=== PATIENT | female | born 1945 | race Caucasian/White ===

== ENCOUNTER → 2017-06-05 | Outpatient (CLI) | payer MEDICARE, SELFPAY | PROVIDERS: Family Provider Internal Medicine Adolescent Medicine; Visit Provider Nurse Practitioner Family | DX: M54.5 Low back pain (principal); M62.830 Muscle spasm of back | CPT/HCPCS: 72072; 72110 ==

== ENCOUNTER → 2017-06-18 09:00 | Outpatient (CLI) | payer MEDICARE, SELFPAY ==
[2017-06-18 09:34] LABS: Basophils % 0.6 % (0.1-2.0); Eosinophils # 0.4 K/mm3 (0.0-0.4); Eosinophils % 7.3 % (0.1-12.0); Lymphocytes # 1.9 K/mm3 (0.7-4.5); Lymphocytes % 40.5 K/mm3 (10-50); Mean Corpuscular HGB Conc 32.4 g/dL (31.8-35.4); Mean Corpuscular Volume 92.5 fl (81-99); Mean Platelet Volume 6.9 fl (7.4-10.4); Monocytes # 0.3 K/mm3 (0.1-1.0); Monocytes % 6.5 % (1.7-9.3); Neutrophils # 2.2 K/mm3 (1.8-7.8); Platelet Count 239 K/mm3 (142-424); Red Blood Count 3.35 M/mm3 (4.20-5.40); Red Cell Distribution Width 13.5 % (11.5-17.5); White Blood Count 4.8 K/mm3 (4.8-10.8)
[2017-06-18 10:08] LABS: Hemoglobin A1C 6.9 % (0.0-7.0)
[2017-06-18 10:52] LABS: Alanine Aminotransferase 28 U/L (12-78); Albumin Level 3.9 gm/dL (3.4-5.0); Albumin/Globulin Ratio 1.2 (1.1-1.8); Alkaline Phosphatase 72 U/L (46-116); Anion Gap 13.1 mEq/L (5-15); Aspartate Amino Transferase 20 U/L (15-37); Bilirubin,Total 0.4 mg/dL (0.2-1.0); Blood Urea Nitrogen 23 mg/dL (7-18); Calcium 8.8 mg/dL (8.5-10.1); Carbon Dioxide 28 mmol/L (21.0-32.0); Chloride 105 mmol/L (98-107); Chol/HDL Ratio 2.8 (1-3.5); Cholesterol 166 mg/dL (140-200); Creatinine,Serum 1.39 mg/dL (0.55-1.02); Estimated Glomerular Filt Rate 37 ml/min (>60); GFR (African American) 45 ML/MIN (>60); Globulin 3.2 gm/dl (1.3-3.2); Glucose 113 mg/dL (74-106); HDL Cholesterol 60 mg/dL (29-89); LDL Cholesterol 92 mg/dL (0-130); Potassium 5.1 mmoL/L (3.5-5.1); Sodium 141 mmol/L (136-145); Total Protein,Serum 7.1 gm/dL (6.4-8.2); Triglycerides 72 mg/dL (30-200); VLDL Cholesterol 14 mg/dL (0-40)
[2017-06-20 17:03] LABS: Microalbumin, Urine 14.5 ug/mL (Not Estab.)
== END ==
PROVIDERS: PCP Nurse Practitioner Family; Visit Provider Nurse Practitioner Family
DX: D64.9 Anemia, unspecified (principal); E11.9 Type 2 diabetes mellitus without complications; E78.2 Mixed hyperlipidemia; I10 Essential (primary) hypertension
CPT/HCPCS: 36415; 80053; 80061; 82043; 83036; 85025

== ENCOUNTER → 2018-03-17 08:02 | Outpatient (CLI) | payer MEDICARE, SELFPAY ==
[2018-03-17 08:51] LABS: Basophils # 0.1 K/mm3 (0-0.2); Basophils % 1.3 % (0.1-2.0); Eosinophils # 0.8 K/mm3 (0.0-0.4); Eosinophils % 17.5 % (0.1-12.0); Hematocrit 30.1 % (37.0-47.0); Hemoglobin 9.3 g/dL (12.2-16.2); Lymphocytes # 1.4 K/mm3 (0.7-4.5); Lymphocytes % 30.1 K/mm3 (10-50); Mean Corpuscular HGB Conc 30.9 g/dL (31.8-35.4); Mean Corpuscular Hemoglobin 29.5 pg (27.0-31.2); Mean Corpuscular Volume 95.4 fl (81-99); Mean Platelet Volume 6.7 fl (7.4-10.4); Monocytes # 0.3 K/mm3 (0.1-1.0); Monocytes % 7.2 % (1.7-9.3); Neutrophils # 2.1 K/mm3 (1.8-7.8); Neutrophils % 43.9 % (37.0-80.0); Platelet Count 236 K/mm3 (142-424); Red Blood Count 3.16 M/mm3 (4.20-5.40); Red Cell Distribution Width 13.3 % (11.5-17.5); White Blood Count 4.7 K/mm3 (4.8-10.8)
[2018-03-17 09:28] LABS: Alanine Aminotransferase 23 U/L (12-78); Albumin Level 3.9 gm/dL (3.4-5.0); Albumin/Globulin Ratio 1.2 (1.1-1.8); Alkaline Phosphatase 67 U/L (46-116); Anion Gap 15.3 mEq/L (5-15); Aspartate Amino Transferase 18 U/L (15-37); Bilirubin,Total 0.3 mg/dL (0.2-1.0); Blood Urea Nitrogen 25 mg/dL (7-18); Calcium 8.8 mg/dL (8.5-10.1); Carbon Dioxide 26 mmol/L (21.0-32.0); Chloride 105 mmol/L (98-107); Chol/HDL Ratio 3.2 (1-3.5); Cholesterol 164 mg/dL (140-200); Creatinine,Serum 1.26 mg/dL (0.55-1.02); Estimated Glomerular Filt Rate 42 ml/min (>60); GFR (African American) 50 ML/MIN (>60); Globulin 3.2 gm/dl (1.3-3.2); Glucose 134 mg/dL (74-106); HDL Cholesterol 52 mg/dL (29-89); LDL Cholesterol 93 mg/dL (0-130); Potassium 5.3 mmoL/L (3.5-5.1); Sodium 141 mmol/L (136-145); Total Protein,Serum 7.1 gm/dL (6.4-8.2); Triglycerides 97 mg/dL (30-200); VLDL Cholesterol 19 mg/dL (0-40)
[2018-03-17 10:34] LABS: Hemoglobin A1C 6.4 % (0.0-7.0)
[2018-03-18 11:26] LABS: Creatinine, Urine 36.2 mg/dL (Not Estab.); Microalbumin, Urine 7.2 ug/mL (Not Estab.)
== END ==
PROVIDERS: PCP Internal Medicine Adolescent Medicine; Visit Provider Nurse Practitioner Family
DX: E78.2 Mixed hyperlipidemia (principal); E11.22 Type 2 diabetes mellitus with diabetic chronic kidney disease; D64.9 Anemia, unspecified; I10 Essential (primary) hypertension
CPT/HCPCS: 36415; 80053; 80061; 82043; 82570; 83036; 85025

== ENCOUNTER → 2018-03-19 10:43 | Outpatient (CLI) | payer MEDICARE, SELFPAY ==
[2018-03-19 14:13] LABS: Ferritin 23 ng/mL (8-388)
[2018-03-20 08:25] LABS: Iron 49 ug/dL (27-139); UIBC 278 ug/dL (118-369)
[2018-03-20 10:05] LABS: Vitamin B12 828 pg/mL (232-1245)
[2018-03-20 10:06] LABS: Folate >20.0 ng/mL (>3.0); Iron Saturation 15 % (15-55)
== END ==
PROVIDERS: PCP Internal Medicine Adolescent Medicine; Visit Provider Nurse Practitioner Family
DX: D50.9 Iron deficiency anemia, unspecified (principal)
CPT/HCPCS: 36415; 82607; 82728; 82746; 83540; 83550

== ENCOUNTER → 2018-04-09 11:33 | Outpatient (CLI) | payer MEDICARE, SELFPAY ==
[2018-04-09 14:32] LABS: Lactate Dehydrogenase 208 U/L (82-234); Thyroid Stimulating Hormone 1.78 uIU/ml (0.358-3.740)
[2018-04-10 14:15] LABS: Haptoglobin 156 mg/dL (34-200)
[2018-04-10 15:27] LABS: Albumin 3.8 g/dL (2.9-4.4); Alpha-1-Globulin 0.2 g/dL (0.0-0.4); Gamma Globulin 1.1 g/dL (0.4-1.8); Protein, Total 7.1 g/dL (6.0-8.5)
[2018-04-10 16:21] LABS: Free Kappa Lt Chains 38.2 mg/L (3.3-19.4); Free Lambda Lt Chains 17.7 mg/L (5.7-26.3); Immunoglobulin A, Qn 185 mg/dL (64-422); Immunoglobulin G, Qn 1020 mg/dL (700-1600); Immunoglobulin M, Qn 67 mg/dL (26-217)
[2018-04-15 12:36] LABS: Strongyloides IgG Antibody Negative (Negative)
== END ==
PROVIDERS: PCP Nurse Practitioner Family; Visit Provider Internal Medicine Medical Oncology
DX: D72.1 Eosinophilia (principal); Z79.899 Other long term (current) drug therapy
CPT/HCPCS: 36415; 82784; 83010; 83615; 83883; 84155; 84165; 84443; 86334; 86682

== ENCOUNTER 2018-04-27 10:00 | Outpatient (RCR) | payer MEDICARE, SELFPAY ==
--- NOTE | 2018-03-16 14:37 | HMH.PTOPWND ---
Rehab Outpt Wound Evaluation Rehab OP Wound Evaluation Start: 03/16/18 14:27 Freq: Status: Active Protocol: Document 03/16/18 14:27 [email or web address] (Rec: 03/16/18 14:37 [email or web address] [id number]) Electronically Signed By Oh Craig, PT 03/16/18 14:27 Subjective/History History History This is the initial wound evaluation for Shayy Craig. Pt is a 72 y/o female referred to OP PT wound clinic for slow healing wound. Pt reports she was bit by cat on R anterior craig 02/01. Pt rpeorts she went to [facility], then saw PCP. Pt reports 1 round of antibiotics. Wound Eval Wound Right Anterior Distal Craig Wound Type cat bite Is This a Chronic Wound Yes Wound Length (cm) 0.5 Wound Width (cm) 0.3 Wound Depth (cm) 0.1 Wound Bed Appearance Beefy Red Yellow Percentage Granulated (%) 60 Percentage of Slough (%) 40 Percentage of Eschar (Yellow) (%) 40 Wound Margins Description Well Defined Edema Type Pitting Edema Degree 1+ Query Text:1+ Trace, Barely Detectable, Rebound 15-30 seconds 2+ Moderate, Slight Indentation, Rebound 10-20 seconds 3+ Deep, Deeper Indentation, Rebound > 30 seconds 4+ Very Deep, Rebound > 60 seconds Edema Appearance Shiny Surrounding Tissue Temperature Warm Drainage Amount None Drainage Odor No Odor Dressing Status Open to Air Wound Topical Solution/Irrigant Antibiotic Irrigant Primary Dressing Silver Dressing Comment teg AG mesh Wound Secondary Dressing Type Silver Dressing Wound Debridement Amount of Tissue Minimal Removed Wound Debridement Result Healthy Tissue Revealed Dressing Change Date 03/16/18 Wound Problems/Impairments Impairments Problems/Impairmments Wound Care Needs Impaired Self Care/Self Management Prognosis Rehab Potential Good Clinical Impression Consistent with Diagnosis Yes Short Term Goals Number of Weeks 2 Decrease Wound Area Yes: 50% Increase Red Granulation Tissue % Yes: 100 Patient to be Ind w/ Home Wound Care/ Yes 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
== END 2018-04-27 10:05 | disposition home or self-care (01) ==
LOC: PT 10:00
PROVIDERS: Visit Provider Nurse Practitioner Family
DX: L03.115 Cellulitis of right lower limb (principal); S91.051D Open bite, right ankle, subsequent encounter
CPT/HCPCS: 97161

== ENCOUNTER → 2018-07-22 10:52 | Outpatient (CLI) | payer MEDICARE, SELFPAY ==
[2018-07-22 11:05] LABS: Basophils # 0.1 K/mm3 (0-0.2); Basophils % 0.6 % (0.1-2.0); Eosinophils # 1.2 K/mm3 (0.0-0.4); Eosinophils % 16.8 % (0.1-12.0); Hematocrit 31.2 % (37.0-47.0); Hemoglobin 10.1 g/dL (12.2-16.2); Mean Corpuscular HGB Conc 32.2 g/dL (31.8-35.4); Mean Corpuscular Volume 93.2 fl (81-99); Mean Platelet Volume 6.4 fl (7.4-10.4); Monocytes # 0.4 K/mm3 (0.1-1.0); Monocytes % 5.6 % (1.7-9.3); Neutrophils # 3.7 K/mm3 (1.8-7.8); Platelet Count 250 K/mm3 (142-424); Red Blood Count 3.35 M/mm3 (4.20-5.40); Red Cell Distribution Width 13.8 % (11.5-17.5); White Blood Count 7.4 K/mm3 (4.8-10.8)
== END ==
PROVIDERS: Visit Provider Internal Medicine Medical Oncology
DX: D64.9 Anemia, unspecified (principal)
CPT/HCPCS: 36415; 85025

== ENCOUNTER → 2018-08-18 12:06 | Outpatient (CLI) | payer MEDICARE, SELFPAY ==
[2018-08-18 12:55] LABS: Basophils # 0.1 K/mm3 (0-0.2); Basophils % 0.8 % (0.1-2.0); Eosinophils # 0.7 K/mm3 (0.0-0.4); Eosinophils % 10.8 % (0.1-12.0); Hemoglobin 9.8 g/dL (12.2-16.2); Mean Corpuscular HGB Conc 32.8 g/dL (31.8-35.4); Mean Corpuscular Hemoglobin 30.4 pg (27.0-31.2); Mean Corpuscular Volume 92.6 fl (81-99); Mean Platelet Volume 6.5 fl (7.4-10.4); Monocytes # 0.4 K/mm3 (0.1-1.0); Monocytes % 5.4 % (1.7-9.3); Neutrophils # 3.7 K/mm3 (1.8-7.8); Platelet Count 222 K/mm3 (142-424); Red Blood Count 3.24 M/mm3 (4.20-5.40); Red Cell Distribution Width 13.4 % (11.5-17.5); White Blood Count 6.8 K/mm3 (4.8-10.8)
[2018-08-18 13:41] LABS: Hemoglobin A1C 7.2 % (0.0-7.0)
[2018-08-18 15:16] LABS: Alanine Aminotransferase 18 U/L (12-78); Albumin Level 3.9 gm/dL (3.4-5.0); Albumin/Globulin Ratio 1.1 (1.1-1.8); Alkaline Phosphatase 76 U/L (46-116); Anion Gap 17.3 mEq/L (5-15); Aspartate Amino Transferase 19 U/L (15-37); Bilirubin,Total 0.3 mg/dL (0.2-1.0); Blood Urea Nitrogen 36 mg/dL (7-18); Calcium 8.8 mg/dL (8.5-10.1); Carbon Dioxide 25 mmol/L (21.0-32.0); Chloride 100 mmol/L (98-107); Chol/HDL Ratio 5.1 (1-3.5); Cholesterol 199 mg/dL (140-200); Creatinine,Serum 1.44 mg/dL (0.55-1.02); Estimated Glomerular Filt Rate 35 ml/min (>60); GFR (African American) 43 ML/MIN (>60); Globulin 3.5 gm/dl (1.3-3.2); Glucose 196 mg/dL (74-106); HDL Cholesterol 39 mg/dL (29-89); LDL Cholesterol 126 mg/dL (0-130); Potassium 5.3 mmoL/L (3.5-5.1); Sodium 137 mmol/L (136-145); Thyroid Stimulating Hormone 2.37 uIU/ml (0.358-3.740); Total Protein,Serum 7.4 gm/dL (6.4-8.2); Triglycerides 168 mg/dL (30-200); VLDL Cholesterol 34 mg/dL (0-40)
== END ==
PROVIDERS: Visit Provider Internal Medicine Adolescent Medicine
DX: E78.2 Mixed hyperlipidemia (principal); E11.9 Type 2 diabetes mellitus without complications; Z79.84 Long term (current) use of oral hypoglycemic drugs
CPT/HCPCS: 36415; 80053; 80061; 83036; 84443; 85025

== ENCOUNTER → 2019-01-26 11:10 | Outpatient (CLI) | payer MEDICARE, SELFPAY ==
--- NOTE | 2019-01-26 11:14 | XR_ITS ---
PROCEDURE: XR CHEST 2V CLINICAL HISTORY: COUGH COMPARISON: CXR CHEST(2 VIEWS-NOT PORTABLE) from 12/08/2013 CXR CHEST(2 VIEWS-NOT PORTABLE) from 07/30/2016 CXR CHEST(2 VIEWS-NOT PORTABLE) from 11/15/2016 FINDINGS: Prior CABG and mitral valve replacement. Mild cardiomegaly without failure. AICD device is present from left subclavian approachthe lungs are clear without infiltrates, suspicious nodules, or pleural effusions.Calcified granuloma right upper lobe IMPRESSION: No acute findings. Dictated by: Tobi Blankenship MD 01/26/2019 12:40 Signed by: <Electronically signed by Tobi Blankenship MD in [place]> 01/26/2019 12:40
== END ==
PROVIDERS: PCP Internal Medicine Adolescent Medicine; Visit Provider Internal Medicine Adolescent Medicine
DX: R05 Cough (principal)
CPT/HCPCS: 71046

== ENCOUNTER → 2019-02-16 08:25 | Outpatient (CLI) | payer MEDICARE, SELFPAY ==
[2019-02-16 08:42] LABS: Basophils # 0.1 K/mm3 (0-0.2); Basophils % 0.9 % (0.1-2.0); Eosinophils # 0.3 K/mm3 (0.0-0.4); Eosinophils % 5.9 % (0.1-12.0); Hematocrit 30.4 % (37.0-47.0); Hemoglobin 9.6 g/dL (12.2-16.2); Lymphocytes # 1.9 K/mm3 (0.7-4.5); Lymphocytes % 33.4 % (10-50); Mean Corpuscular HGB Conc 31.6 g/dL (31.8-35.4); Mean Corpuscular Hemoglobin 30.4 pg (27.0-31.2); Mean Platelet Volume 6.4 fl (7.4-10.4); Monocytes # 0.5 K/mm3 (0.1-1.0); Monocytes % 8.4 % (1.7-9.3); Neutrophils % 51.4 % (37.0-80.0); Platelet Count 298 K/mm3 (142-424); Red Blood Count 3.17 M/mm3 (4.20-5.40); Red Cell Distribution Width 14.6 % (11.5-17.5); White Blood Count 5.7 K/mm3 (4.8-10.8)
[2019-02-16 09:07] LABS: Hemoglobin A1C 7.3 % (0.0-7.0)
[2019-02-16 10:37] LABS: Alanine Aminotransferase 32 U/L (12-78); Albumin Level 3.6 gm/dL (3.4-5.0); Albumin/Globulin Ratio 0.9 (1.1-1.8); Alkaline Phosphatase 55 U/L (46-116); Anion Gap 12.5 mEq/L (5-15); Aspartate Amino Transferase 21 U/L (15-37); Bilirubin,Total 0.6 mg/dL (0.2-1.0); Blood Urea Nitrogen 24 mg/dL (7-18); Calcium 9.1 mg/dL (8.5-10.1); Carbon Dioxide 28 mmol/L (21.0-32.0); Chloride 102 mmol/L (98-107); Chol/HDL Ratio 2.8 (1-3.5); Cholesterol 139 mg/dL (140-200); Estimated Glomerular Filt Rate 48 ml/min (>60); GFR (African American) 59 ML/MIN (>60); Glucose 122 mg/dL (74-106); HDL Cholesterol 49 mg/dL (29-89); LDL Cholesterol 76 mg/dL (0-130); Potassium 5.5 mmoL/L (3.5-5.1); Sodium 137 mmol/L (136-145); Total Protein,Serum 7.6 gm/dL (6.4-8.2); Triglycerides 69 mg/dL (30-200); VLDL Cholesterol 14 mg/dL (0-40)
== END ==
PROVIDERS: Visit Provider Internal Medicine Adolescent Medicine
DX: E78.2 Mixed hyperlipidemia (principal); E11.9 Type 2 diabetes mellitus without complications; Z79.84 Long term (current) use of oral hypoglycemic drugs; I10 Essential (primary) hypertension
CPT/HCPCS: 36415; 80053; 80061; 83036; 85025

== ENCOUNTER → 2019-06-14 08:52 | Outpatient (CLI) | payer MEDICARE, SELFPAY ==
[2019-06-14 10:02] LABS: Basophils # 0.1 K/mm3 (0-0.2); Basophils % 0.9 % (0.1-2.0); Eosinophils # 0.8 K/mm3 (0.0-0.4); Eosinophils % 12.2 % (0.1-12.0); Hemoglobin 10.6 g/dL (12.2-16.2); Lymphocytes # 1.9 K/mm3 (0.7-4.5); Lymphocytes % 31.2 % (10-50); Mean Corpuscular HGB Conc 32.1 g/dL (31.8-35.4); Mean Corpuscular Hemoglobin 31.3 pg (27.0-31.2); Mean Corpuscular Volume 97.5 fl (81-99); Mean Platelet Volume 7.4 fl (7.4-10.4); Monocytes # 0.3 K/mm3 (0.1-1.0); Monocytes % 5.1 % (1.7-9.3); Neutrophils # 3.1 K/mm3 (1.8-7.8); Neutrophils % 50.6 % (37.0-80.0); Platelet Count 313 K/mm3 (142-424); Red Blood Count 3.39 M/mm3 (4.20-5.40); Red Cell Distribution Width 13.3 % (11.5-17.5); White Blood Count 6.1 K/mm3 (4.8-10.8)
[2019-06-14 10:12] LABS: Hemoglobin A1C 7.2 % (0.0-7.0)
[2019-06-14 11:12] LABS: Alanine Aminotransferase 13 U/L (12-78); Albumin Level 3.6 gm/dL (3.4-5.0); Alkaline Phosphatase 68 U/L (46-116); Anion Gap 16.5 mEq/L (5-15); Aspartate Amino Transferase 12 U/L (15-37); Bilirubin,Total 0.4 mg/dL (0.2-1.0); Blood Urea Nitrogen 33 mg/dL (7-18); Calcium 8.6 mg/dL (8.5-10.1); Carbon Dioxide 26 mmol/L (21.0-32.0); Chloride 103 mmol/L (98-107); Creatinine,Serum 1.39 mg/dL (0.55-1.02); Estimated Glomerular Filt Rate 37 ml/min (>60); GFR (African American) 45 ML/MIN (>60); Globulin 3.6 gm/dl (1.3-3.2); Glucose 163 mg/dL (74-106); Potassium 5.5 mmoL/L (3.5-5.1); Sodium 140 mmol/L (136-145); Total Protein,Serum 7.2 gm/dL (6.4-8.2)
== END ==
PROVIDERS: Visit Provider Internal Medicine Adolescent Medicine
DX: E11.9 Type 2 diabetes mellitus without complications (principal); Z79.84 Long term (current) use of oral hypoglycemic drugs
CPT/HCPCS: 36415; 80053; 83036; 85025

== ENCOUNTER → 2019-12-28 09:06 | Outpatient (CLI) | payer MEDICARE, SELFPAY ==
[2019-12-28 09:47] LABS: Basophils # 0.1 K/mm3 (0-0.2); Basophils % 0.9 % (0.1-2.0); Eosinophils # 0.8 K/mm3 (0.0-0.4); Eosinophils % 11.5 % (0.1-12.0); Hematocrit 33.3 % (37.0-47.0); Hemoglobin 10.5 g/dL (12.2-16.2); Lymphocytes # 2.8 K/mm3 (0.7-4.5); Lymphocytes % 42.7 % (10-50); Mean Corpuscular HGB Conc 31.5 g/dL (31.8-35.4); Mean Corpuscular Hemoglobin 31.1 pg (27.0-31.2); Mean Corpuscular Volume 98.9 fl (81-99); Mean Platelet Volume 6.6 fl (7.4-10.4); Monocytes # 0.4 K/mm3 (0.1-1.0); Monocytes % 5.5 % (1.7-9.3); Neutrophils # 2.6 K/mm3 (1.8-7.8); Neutrophils % 39.5 % (37.0-80.0); Platelet Count 239 K/mm3 (142-424); Red Blood Count 3.37 M/mm3 (4.20-5.40); White Blood Count 6.5 K/mm3 (4.8-10.8)
[2019-12-28 10:29] LABS: Alanine Aminotransferase 12 U/L (12-78); Albumin Level 4.3 g/dl (3.5-5.0); Albumin/Globulin Ratio 1.4 (1.1-1.8); Alkaline Phosphatase 67 U/L (38-126); Anion Gap 14.7 mEq/L (5-15); Aspartate Amino Transferase 22 U/L (14-36); Bilirubin,Total 0.4 mg/dl (0.2-1.3); Blood Urea Nitrogen 27 mg/dl (7-17); Calcium 9.4 mg/dl (8.4-10.2); Carbon Dioxide 26 mmol/L (22.0-30.0); Chloride 106 mmol/L (98-107); Chol/HDL Ratio 4.2 (1-3.5); Cholesterol 196 mg/dl (140-200); Estimated Glomerular Filt Rate 40 ml/min (>60); GFR (African American) 48 ML/MIN (>60); Globulin 3.1 g/dL (1.3-3.2); Glucose 134 mg/dl (74-100); HDL Cholesterol 47 mg/dl (40-60); Potassium 5.7 mmoL/L (3.5-5.1); Sodium 141 mmol/L (136-145); Total Protein,Serum 7.4 g/dl (6.3-8.2); Triglycerides 238 mg/dl (30-150); VLDL Cholesterol 48 mg/dL (0-40)
[2019-12-28 10:40] LABS: Direct LDL Cholesterol 110.96 mg/dL (100-129)
[2019-12-28 11:25] LABS: Hemoglobin A1C 6.7 % (4.0-6.0)
== END ==
PROVIDERS: Visit Provider Internal Medicine Adolescent Medicine
DX: E78.2 Mixed hyperlipidemia (principal); I10 Essential (primary) hypertension; E11.9 Type 2 diabetes mellitus without complications; Z79.84 Long term (current) use of oral hypoglycemic drugs
CPT/HCPCS: 36415; 80053; 80061; 83036; 85025

== ENCOUNTER 2020-01-29 21:58 | Observation (INO) | payer MEDICARE, SELFPAY ==
[2020-01-29 22:16] VITALS: BP 199/79; PULSE 104; RESP 17; TEMP 36.6; O2SAT 98; BMI 30.9
--- NOTE | 2020-01-29 22:19 | CT_ITS ---
PROCEDURE: CT HEAD/BRAIN WO CON CLINICAL INDICATION: difficulty speaking Speech disturbance stroke protocol COMPARISON: No exams were available for comparison TECHNIQUE: Axial images obtained. All CT scans at the facility use one or more dose reduction, viz: automated exposure control, ma/kV adjustment per patient size (including targeted exams where dose is matched to indication, i.e. head), or iterative reconstruction technique. FINDINGS: No midline shift, mass effect, intracranial hemorrhage, hydrocephalus, or extra-axial fluid collection is evident. There is generalized atrophy with hypoattenuation of the periventricular white matter consistent with microangiopathic changes.. There are encephalomalacia changes occipital lobe. The calvarium has an unremarkable appearance. No mastoid effusion. No sinus air-fluid level. IMPRESSION: No acute intracranial finding Dictated by: Tobi Blankenship MD 01/30/2020 07:14 Tobi Blankenship MD in [facility] 01/30/2020 07:14
[2020-01-29 22:21] LABS: POC Glucose,Bedside 59 (70-110)
--- NOTE | 2020-01-29 22:34 | HMH.EDNEU ---
ED Disposition Clinical Impression: TIA (transient ischemic attack), Hypertensive urgency, Renal insufficiency Diabetes mellitus Qualifiers: Diabetes mellitus type: type 2 Diabetes mellitus joint terminal attack controller insulin use: unspecified joint terminal attack controller insulin use status Diabetes mellitus complication status: with other specified complication Qualified Code(s): E11.69 - Type 2 diabetes mellitus with other specified complication UTI (urinary tract infection) Qualifiers: Urinary tract infection type: site unspecified Hematuria presence: without hematuria Qualified Code(s): N39.0 - Urinary tract infection, site not specified Disposition: Admitted As Inpatient Condition on Discharge: Good Instructions: DI for Altered Mental Status Referrals: James Fitzpatrick MD [Primary Care Provider] - - Critical Care Critical Care Time: No Attestation: On 01/29/20, the high probability of a clinically significant, sudden or life threatening deterioration of the following system(s) required my full and direct attention, intervention and personal management. The time I documented below is in addition to time spent performing reported procedures but includes the following listed in this critical care notation. Medical Decision Making - Medical Records Medical records reviewed: Yes: I reviewed the patient's medical records. - Dariel Inquiry Pt receiving controlled substance: No Vital Signs: 01/29/20 22:16 01/29/20 23:17 Temperature 97.8 F Temperature Source Oral Pulse Rate [Right Brachial] 104 H 96 H Respiratory Rate 17 17 Blood Pressure [Right Arm] 199/79 H 202/98 H Blood Pressure Mean [Right Arm] 119 132 Blood Pressure Source [Right Arm] Automatic Cuff Automatic Cuff Blood Pressure Position [Right Arm] Sitting Sitting 02 Sat by Pulse Oximetry 98 97 Oxygen Delivery Method Room Air Room Air - Lab Data Lab results reviewed: Yes: I reviewed the patient's lab results. Lab Results 01/29/20 22:10: WBC 7.8, RBC 3.70 L, Hgb 11.7 L, Hct 34.7 L, MCV 93.7, MCH 31.5 H, MCHC 33.7, RDW 13.4, Plt Count 305, MPV 7.2 L, Neut % (Auto) 51.0, Lymph % (Auto) 37.6, [place] % (Auto) 6.8, Eos % (Auto) 4.2, Baso % (Auto) 0.5, Neut # (Auto) 4.0, Lymph # (Auto) 2.9, [place] # (Auto) 0.5, Eos # (Auto) 0.3, Baso # (Auto) 0.0 01/29/20 22:10: Sodium 132 L, Potassium 4.8, Chloride 94 L, Carbon Dioxide 27, Anion Gap 15.8 H, BUN 29 H, Creatinine 1.50 H, Estimated Creat Clear 41, Estimated GFR 34 L, Est GFR ( Amer) 41 L, Glucose 53 L, Calcium 9.6, Troponin I < 0.01 01/29/20 22:12: POC Glucose 59 L 01/29/20 23:07: Urine Color Yellow, Urine Appearance Clear, Urine pH 6.0, Ur Specific [place] 1.010, Urine Protein Negative, Urine Glucose (UA) Negative, Urine Ketones Negative, Urine Blood Negative, Urine Nitrate Negative, Urine Bilirubin Negative, Urine Urobilinogen 0.2, Ur Leukocyte Esterase 2+ A, Urine WBC 3-5, Ur Squamous Epith Cells Occasional, Urine Bacteria Trace Result diagrams: 01/29/20 22:10 01/29/20 22:10 Orders (Tests/Meds): ORDERS Category Date Time Status CT head/brain wo con Stat Cat Scan 01/29/20 22:19 Taken Troponin I Q3H Lab 01/30/20 01:45 Ordered Troponin I Q3H Lab 01/30/20 04:45 Ordered Urine Culture Stat Micro 01/29/20 23:07 Received - CT Data CT Scan: Head Time Received: 00:[address] Reviewed: Yes: I have viewed the radiologist's interpretation Preliminary Findings: Abnormal (see report ) - ECG Data Tracing #1 Normal Sinus Rhythm: Yes Ischemic changes: non-specific ST-T wave changes - Physician Consults Physician Consulted: tyree garcia Reason -: Pt condition Neuro HPI - General Chief Complaint: Altered Mental Status Stated Complaint: difficulty with speech Time Seen by Provider: 01/29/20 22:20 Mode of Arrival: Wheelchair Source of Information: Patient, Spouse, Medical Record Limitations: No Limitations Description of Symptoms (Recalled from ER Triage Doc. by RN): reports patient woke him up around 1999 and
--- NOTE | 2020-01-29 22:36 | ECG_ITS ---
APPROVED REPORT Exam: Resting ECG HR:93 bpm ECG Measurements Heart Rate 93 AXES CO 240 P 62 QRSd 88 QRS 89 QT 346 T -40 QTc 430 <Conclusion> Sinus rhythm with 1st degree AV block Cannot rule out Anterior infarct, age undetermined Abnormal ECG Electronically signed by : Aaron Ferguson, 01/30/2020 06:02:31
[2020-01-29 23:07] LABS: Chloride 94 mmol/L (98-107)
[2020-01-29 23:08] LABS: Basophils % 0.5 % (0.1-2.0); Eosinophils # 0.3 K/mm3 (0.0-0.4); Eosinophils % 4.2 % (0.1-12.0); Hematocrit 34.7 % (37.0-47.0); Hemoglobin 11.7 g/dL (12.2-16.2); Lymphocytes # 2.9 K/mm3 (0.7-4.5); Lymphocytes % 37.6 % (10-50); Mean Corpuscular HGB Conc 33.7 g/dL (31.8-35.4); Mean Corpuscular Hemoglobin 31.5 pg (27.0-31.2); Mean Corpuscular Volume 93.7 fl (81-99); Mean Platelet Volume 7.2 fl (7.4-10.4); Monocytes # 0.5 K/mm3 (0.1-1.0); Monocytes % 6.8 % (1.7-9.3); Platelet Count 305 K/mm3 (142-424); Potassium 4.8 mmoL/L (3.5-5.1); Red Cell Distribution Width 13.4 % (11.5-17.5); Sodium 132 mmol/L (136-145); White Blood Count 7.8 K/mm3 (4.8-10.8)
[2020-01-29 23:10] LABS: Blood Urea Nitrogen 29 mg/dl (7-17); Creatinine Clearance Estimated 41 mL/min (50-200); Estimated Glomerular Filt Rate 34 ml/min (>60); GFR (African American) 41 ML/MIN (>60)
[2020-01-29 23:11] LABS: Anion Gap 15.8 mEq/L (5-15); Calcium 9.6 mg/dl (8.4-10.2); Carbon Dioxide 27 mmol/L (22.0-30.0); Glucose 53 mg/dl (74-100)
[2020-01-29 23:17] VITALS: BP 202/98; PULSE 96; RESP 17; O2SAT 97
[2020-01-29 23:20] LABS: Microscopic, Urine URINE MICROSCOPIC (MICROSCOPIC)
[2020-01-29 23:27] LABS: Appearance,Urine CLEAR (Clear); Bilirubin,Urine Negative (Negative); Blood, Urine Negative (Negative); Color,Urine YELLOW (Yellow); Glucose,Urine (UA) Negative (Negative); Ketones,Urine Negative (Negative); Leukocyte Esterase,Urine 2+ (Negative); Nitrate,Urine Negative (Negative); Protein,Urine Negative (Negative); Urobilinogen,Urine 0.2 EU/dl (0.2)
[2020-01-29 23:29] LABS: Troponin I < 0.01 ng/ml (0.00-0.034)
[2020-01-29 23:40] LABS: Bacteria,Urine Trace /lpf; Squamous Epithelial Cell,Urine Occasional #/hpf (0-5)
[2020-01-29 23:50] VITALS: BP 202/94; PULSE 100; RESP 17; O2SAT 96
[2020-01-30] VITALS (12 sets, daily range): BP systolic 109–186; BP diastolic 52–95; PULSE 60–106; RESP 14–20; TEMP 36.6–37.3; O2SAT 94–98; BMI 30.1
[2020-01-30 00:20] LABS: Coronavirus 19 IgG Antibody Negative (Negative); Coronavirus 19 IgM Antibody Negative (Negative)
[2020-01-30 00:38] LABS: POC Glucose,Bedside 101 (70-110)
--- NOTE | 2020-01-30 00:51 | PC.NURSE ---
PT ARRIVED TO FLOOR VIA W/C WITH STAFF FROM ER [id number].
[2020-01-30 01:36] LABS: Erythrocyte Sedimentation Rate 66 mm/hr (0-30)
[2020-01-30 01:52] LABS: Troponin I < 0.01 ng/ml (0.00-0.034)
[2020-01-30 05:32] LABS: Basophils % 0.3 % (0.1-2.0); Eosinophils # 0.1 K/mm3 (0.0-0.4); Eosinophils % 1.2 % (0.1-12.0); Hematocrit 31.9 % (37.0-47.0); Hemoglobin 10.6 g/dL (12.2-16.2); Lymphocytes # 1.9 K/mm3 (0.7-4.5); Lymphocytes % 24.1 % (10-50); Mean Corpuscular HGB Conc 33.4 g/dL (31.8-35.4); Mean Corpuscular Hemoglobin 31.7 pg (27.0-31.2); Mean Corpuscular Volume 95.2 fl (81-99); Mean Platelet Volume 7.1 fl (7.4-10.4); Monocytes # 0.5 K/mm3 (0.1-1.0); Monocytes % 6.5 % (1.7-9.3); Neutrophils # 5.3 K/mm3 (1.8-7.8); Platelet Count 269 K/mm3 (142-424); Red Blood Count 3.35 M/mm3 (4.20-5.40); Red Cell Distribution Width 13.3 % (11.5-17.5); White Blood Count 7.9 K/mm3 (4.8-10.8)
[2020-01-30 05:34] LABS: Troponin I 0.11 ng/ml (0.00-0.034)
[2020-01-30 05:54] LABS: POC Glucose,Bedside 175 (70-110)
[2020-01-30 05:55] LABS: Chloride 97 mmol/L (98-107); Potassium 5.5 mmoL/L (3.5-5.1); Sodium 128 mmol/L (136-145)
[2020-01-30 05:58] LABS: Anion Gap 13.5 mEq/L (5-15); Blood Urea Nitrogen 25 mg/dl (7-17); Carbon Dioxide 23 mmol/L (22.0-30.0); Cholesterol 162 mg/dl (140-200); Creatinine Clearance Estimated 46 mL/min (50-200); Estimated Glomerular Filt Rate 40 ml/min (>60); GFR (African American) 48 ML/MIN (>60); Glucose 182 mg/dl (74-100); Triglycerides 102 mg/dl (30-150); VLDL Cholesterol 20 mg/dL (0-40)
[2020-01-30 05:59] LABS: Chol/HDL Ratio 3.3 (1-3.5); HDL Cholesterol 49 mg/dl (40-60); Magnesium 1.5 mg/dl (1.6-2.3)
[2020-01-30 06:09] LABS: Direct LDL Cholesterol 91.59 mg/dL (100-129)
[2020-01-30 06:53] LABS: Calcium 8.6 mg/dl (8.4-10.2)
--- NOTE | 2020-01-30 13:31 | HMH.PHAVTE ---
[facility] Pharmacy VTE Monitoring - Patient Demographics Admission date: 01/30/20 Report Date: 01/30/20 Time: 13:31 Allergies/Adverse Reactions: Patient Allergies celecoxib [From CELEBREX] Allergy (Unknown, Verified 01/30/20 08:09) Unknown allergy reaction cyclobenzaprine [CYCLOBENZAPRINE] Allergy (Unknown, Verified 01/30/20 08:09) Unknown allergy reaction levofloxacin [From LEVAQUIN] Allergy (Unknown, Verified 01/30/20 08:09) Unknown allergy reaction meloxicam [From MOBIC] Allergy (Unknown, Verified 01/30/20 08:09) Unknown allergy reaction oxycodone [From PERCOCET] Allergy (Unknown, Verified 01/30/20 08:09) Unknown allergy reaction Sulfa (Sulfonamide Antibiotics) [SULFA (SULFONAMIDE ANTIBIOTICS)] Allergy (Unknown, Verified 01/30/20 08:09) Unknown allergy reaction tolmetin [From TOLECTIN] Allergy (Unknown, Verified 01/30/20 08:09) Unknown allergy reaction cefixime [From Suprax] Allergy (Verified 01/30/20 08:09) Unknown allergy reaction cefuroxime [From Ceftin] Allergy (Verified 01/30/20 08:09) Unknown allergy reaction venlafaxine [From Effexor] Allergy (Verified 01/30/20 08:09) Unknown allergy reaction Height: 1.63 m Weight: 79.52 kg Patient Problems: Current Active Problems TIA (transient ischemic attack) (Acute) Hypertensive urgency (Acute) Renal insufficiency (Acute) Diabetes mellitus (Acute) UTI (urinary tract infection) (Acute) - VTE Risk Labs: VTE Related Lab Results Hgb 10.6 g/dL (12.2-16.2) L 01/30/20 05:08 Hct 31.9 % (37.0-47.0) L 01/30/20 05:08 Plt Count 269 K/mm3 (142-424) 01/30/20 05:08 BUN 25 mg/dl (7-17) H 01/30/20 05:08 Creatinine 1.30 mg/dl (0.52-1.04) H 01/30/20 05:08 Estimated Creat Clear 46 mL/min (50-200) 01/30/20 05:08 Was VTE Risk Assessment Performed: Yes VTE Score: 6 VTE Risk Level: Moderate Risk - Prophylaxis Types of VTE Prophylaxis: TEDS Knee High (GALILEO HOSE ORDER PLACED) Location of Applied Device: Bilateral Lower Extremeties
[2020-01-30 16:07] LABS: POC Glucose,Bedside 104 (70-110)
[2020-01-30 16:07] LABS: POC Glucose,Bedside 99 (70-110)
--- NOTE | 2020-01-30 16:57 | HMH.HPDC ---
General - General Admission date:: 01/30/20 Discharge date: 01/30/20 *Admission Date: 01/30/20 *Chief complaint: Slurred speech/arm weakness *History of present illness: 74-year-old white female with history of hypertension, cardiac disease and currently on aspirin therapy who presented to the emergency department early in the morning hours today after she awoke around 2 AM and noted that she was not speaking correctly. She woke her up who also noted that she had slurred speech. She also noted that last night before she went to bed she had the feeling of tingling in both of her arms which was somewhat unusual for her. The slurred speech persisted and she was brought to the emergency department. Emergency department evaluation revealed negative CT scan of head. Her blood pressure was significantly elevated over baseline. She reports good compliance with her medication but notes that she received the news late last night of the of a dear friend. She notes that 2 hours after presenting to the emergency department her slurred speech and tingling arm symptoms resolved. She now feels well and wishes to be discharged home. [facility] History I have reviewed the patient's past medical history: Yes Medical History: Reports:: Congestive Heart Failure, Coronary Artery Disease, Diabetes Mellitus Type 2, Heart Murmur, Hyperlipidemia, Hypertension Denies:: Cancer, Diabetes Mellitus Type 1, MRSA *Have you ever received a pneumonia vaccine?: Yes (2018) *Have you received a flu vaccine this season?: Yes (2019) Other Medical History: Reports: Arthritis, Cataracts Laterality Cases: Right: Arthroscopy Hip, Bilateral: Total Knee Replacement Other Surgeries: Yes: CABG, Cardiac Catheterization, Cardiac Surgery, Colonoscopy Amputation: No Fractures: No - *Social History Last grade of school completed: High school graduate Smoking Status: Never smoker Alcohol Intake: never *Occupational Status:: retired Housing: house Household Members: spouse *Travel in the last 8 weeks: None Family Hx:: Cancer Review of Systems - Review of Systems Review of systems:: pertinent systems reviewed and negative unless documented below - *Neurologic Reports tingling/numbness/burning sensations, Denies localized weakness, Denies headache(s), Denies seizure-like activity Exam Vital signs and Labs for Last 24 Hours: Temp Pulse Resp BP Pulse Ox 98.4 F 78 14 141/63 H 94 L 01/30/20 16:03 01/30/20 16:03 01/30/20 16:03 01/30/20 16:03 01/30/20 16:03 Laboratory Results - last 24 hr 01/29/20 22:10: WBC 7.8, RBC 3.70 L, Hgb 11.7 L, Hct 34.7 L, MCV 93.7, MCH 31.5 H, MCHC 33.7, RDW 13.4, Plt Count 305, MPV 7.2 L, Neut % (Auto) 51.0, Lymph % (Auto) 37.6, [place] % (Auto) 6.8, Eos % (Auto) 4.2, Baso % (Auto) 0.5, Neut # (Auto) 4.0, Lymph # (Auto) 2.9, [place] # (Auto) 0.5, Eos # (Auto) 0.3, Baso # (Auto) 0.0 01/29/20 22:10: Sodium 132 L, Potassium 4.8, Chloride 94 L, Carbon Dioxide 27, Anion Gap 15.8 H, BUN 29 H, Creatinine 1.50 H, Estimated Creat Clear 41, Estimated GFR 34 L, Est GFR ( Amer) 41 L, Glucose 53 L, Calcium 9.6, Troponin I < 0.01 01/29/20 22:10: SARS-CoV-2 IgG Ab (Rapid) Negative, SARS-CoV-2 IgM Ab (Rapid) Negative 01/29/20 22:12: POC Glucose 59 L 01/29/20 23:07: Urine Color Yellow, Urine Appearance Clear, Urine pH 6.0, Ur Specific [place] 1.010, Urine Protein Negative, Urine Glucose (UA) Negative, Urine Ketones Negative, Urine Blood Negative, Urine Nitrate Negative, Urine Bilirubin Negative, Urine Urobilinogen 0.2, Ur Leukocyte Esterase 2+ A, Urine WBC 3-5, Ur Squamous Epith Cells Occasional, Urine Bacteria Trace 01/30/20 00:00: ESR 66 H 01/30/20 00:31: POC Glucose 101 01/30/20 01:20: Troponin I < 0.01 01/30/20 05:08: Troponin I 0.11 H 01/30/20 05:08: WBC 7.9, RBC 3.35 L, Hgb 10.6 L, Hct 31.9 L, MCV 95.2, MCH 31.7 H, MCHC 33.4, RDW 13.3, Plt Count 269, MPV 7.1 L, Neut % (Auto) 68.0, Lymph % (Auto) 24.1, [place] % (Auto) 6.5, Eos % (Auto) 1.2, Baso %
== END 2020-01-30 17:30 | disposition home or self-care (01) ==
LOC: ER 22:07 → 2ND 01-30 00:06
PROVIDERS: Family Medicine; Admitting Provider Internal Medicine Adolescent Medicine; Emergency Provider Emergency Medicine; PCP Internal Medicine Adolescent Medicine; Visit Provider Internal Medicine Adolescent Medicine
DX: G45.9 Transient cerebral ischemic attack, unspecified (principal); I25.10 Atherosclerotic heart disease of native coronary artery without angina pectoris; I11.0 Hypertensive heart disease with heart failure; I50.9 Heart failure, unspecified; E78.5 Hyperlipidemia, unspecified; Z79.84 Long term (current) use of oral hypoglycemic drugs; E11.9 Type 2 diabetes mellitus without complications; Z79.82 Long term (current) use of aspirin; Z79.899 Other long term (current) drug therapy; Z88.2 Allergy status to sulfonamides; Z88.8 Allergy status to other drugs, medicaments and biological substances
CPT/HCPCS: 36415; 70450; 80048; 80061; 81001; 82962; 83735; 84484; 85025; 85651; 86328; 87086; 93005; 96365; 96375; 99284; G0378; J2405

== ENCOUNTER → 2020-02-07 10:35 | Outpatient (CLI) | payer MEDICARE, SELFPAY ==
--- NOTE | 2020-02-07 | CA_ITS ---
APPROVED REPORT Supervisor Sunglasses: CT Laterality: Bilateral Indications: CVA/TIA: Risk Factors Hypertension: Hyperlipidemia Diabetes Doppler Spectral Velocity Analysis ECA (R) 85.70/1.70 cm/s ECA (L) 147.00/1.20 cm/s dICA (R) 110.50/18.80 cm/s dICA (L) 91.50/22.20 cm/s [place] (R) 108.80/20.60 cm/s [place] (L) 103.10/22.20 cm/s pICA (R) 89.10/18.00 cm/s pICA (L) 129.10/19.30 cm/s dCCA (R) 82.30/13.70 cm/s dCCA (L) 80.30/14.80 cm/s pCCA (R) 80.50/13.70 cm/s pCCA (L) 59.50/10.70 cm/s Vert (R) 55.70/8.60 cm/s Vert (L) 75.80/12.80 cm/s ICA/CCA 1.30 ICA/CCA 1.60 Findings Duplex evaluation demonstrates stenosis of the right proximal internal carotid artery <20% with PSV <140 cm/sec, EDV <100 cm/sec, and IC/CC Ratio <4.0. Duplex evaluation demonstrates stenosis of the left proximal internal carotid artery <20% with PSV <140 cm/sec, EDV <100 cm/sec, and IC/CC Ratio <4.0. Duplex evaluation demonstrates antegrade flow of the bilateral Vertebral Arteries. Plaque noted in bilateral Common Cartotid Arteries Conclusion Duplex evaluation demonstrates stenosis of the right proximal internal carotid artery <20% with PSV <140 cm/sec, EDV <100 cm/sec, and IC/CC Ratio <4.0. Duplex evaluation demonstrates stenosis of the left proximal internal carotid artery <20% with PSV <140 cm/sec, EDV <100 cm/sec, and IC/CC Ratio <4.0. Duplex evaluation demonstrates antegrade flow of the bilateral Vertebral Arteries. Plaque noted in bilateral Common Cartotid Arteries Electronically signed by : Tobi Blankenship MD 02/07/2020 17:09:54
== END ==
PROVIDERS: PCP Internal Medicine Adolescent Medicine; Visit Provider Internal Medicine Adolescent Medicine
DX: I10 Essential (primary) hypertension (principal); Z86.73 Personal history of transient ischemic attack (TIA), and cerebral infarction without residual deficits
CPT/HCPCS: 93880

== ENCOUNTER 2020-03-20 10:34 | Emergency (ER) | payer MEDICARE, SELFPAY ==
[2020-03-20 10:59] VITALS: BP 159/80; PULSE 79; RESP 20; TEMP 36.7; O2SAT 99; BMI 30.6
--- NOTE | 2020-03-20 11:08 | HMH.EDUTC ---
[facility] [place] Impression: Encounter for screening laboratory testing for COVID-19 virus Disposition: Home, Self-Care Condition on Discharge: Good Instructions: Preventing the Spread of Coronavirus Discharge Instructions Additional Instructions: *Monitor Temp, Over the counter Motrin or Tylenol as directed/as needed Tylenol every 4 hours and Motrin every 6 hours (as long as your family doctor has told you that you can take it) for fever or pain. and straight to ER if unable to lower temp less than 101.0 after medication given *Warm salt water gargles may help to soothe the throat *Throat Lozenges *Warm fluids like tea with honey may help to soothe the throat *Sleep elevated *Humidifier/Vaporizer Follow up IMMEDIATELY for new or worsening symptoms or no Noticeable improvement over the next 48-72 hours. 911 for difficulty breathing or swallowing You was tested for today for COVID19 your test result should be back later this evening, you may call back later this evening to see if your test results are back and the result You was given a handout with instructions for Self Quarantine and Self isolation for while you wait on test results and what to do if they are positive Referrals: Aaron Ferguson MD [Primary Care Provider] - As needed Time of Disposition: 11:13 Medical Decision Making - Dariel Inquiry Pt receiving controlled substance: No Dariel was queried for this patient: No Vital Signs: 03/20/20 10:59 Temperature 98.1 F Temperature Source Oral Pulse Rate [Right Brachial] 79 Respiratory Rate 20 Blood Pressure [Right Arm] 159/80 H Blood Pressure Mean [Right Arm] 106 Blood Pressure Source [Right Arm] Automatic Cuff Blood Pressure Position [Right Arm] Sitting 02 Sat by Pulse Oximetry 99 Oxygen Delivery Method Room Air Orders (Tests/Meds): ORDERS Category Date Time Status Covid-19 Nasal PCR ([facility]) Routine Lab 03/20/20 10:43 [place] [facility] [place] - General Stated complaint: wants covid test Time Seen by Provider: 03/20/20 11:08 Mode of Arrival: Ambulatory Source of Information: Patient Limitations: No Limitations Description of Symptoms (Recalled from Triage Doc. by RN): PATIENT REQUESTING COVID TEST; STATES SHE WAS EXPOSED TO HER PCP ON FRIDAY WHO LATER TESTED POSITIVE. DENIES SYMPTOMS HEENT Symptoms (Recalled from RN notes): No Resp Symptoms (Recalled from RN notes): No Skin Symptoms (Recalled from RN notes): No MS Symptoms (Recalled from RN notes): No Functional Status (Recalled from RN notes): WNL - History of Present Illness Provider Complaint: Patient states that she came in to get tested after she was exposed to COVID when she saw her PCP and he recently tested positive for COVID States that they recommeded she come in and get tested - Related Data Home Medications Medication Instructions Recorded Confirmed Acetaminophen [Tylenol Arthritis] 650 mg PO NEEDED PRN 04/26/18 01/29/20 Cholecalciferol (Vitamin D3) 1,000 iunits PO DAILY 04/26/18 01/29/20 [Vitamin D3 1,000 Unit Cap] Dicyclomine HCl 20 mg PO TIDP PRN 04/26/18 01/30/20 Furosemide [Lasix 20mg tablet] 20 mg PO DAILYP PRN 04/26/18 01/30/20 Multivit-Min/FA/Lycopen/Lutein 1 each PO DAILY 04/26/18 01/29/20 [Centrum Silver Tablet] [place]-3 Fatty Acids/Fish Oil [Fish 1 each PO BID 04/26/18 01/29/20 Oil 1,000 mg Capsule] Ondansetron [Zofran 4mg ODT] 4 mg PO Q8 PRN 04/26/18 01/29/20 Red Yeast Rice 600 mg PO BID 04/26/18 01/29/20 carvediloL [Carvedilol 12.5mg Tab] 12.5 mg PO BID 04/26/18 01/30/20 diazePAM [diazePAM 5mg Tablet] 5 mg PO TIDP PRN 04/26/18 01/30/20 Aspirin [Aspirin 81mg EC Tab] 81 mg PO DAILY 01/30/20 01/30/20 Cetirizine HCl 10 mg PO DAILY 01/30/20 01/30/20 Lactobacillus Acidophilus 1 each PO DAILY 01/30/20 01/30/20 [Probiotic] Metformin HCl [Metformin 1000mg 1,000 mg PO BID 01/30/20 01/30/20 Tablets] Simvastatin 5 mg PO HS 01/30/20 01/30/20 Sitagliptin Phosphate [Januvia 100 mg PO DA
[2020-03-20 11:17] VITALS: BP 159/80; PULSE 79; RESP 20; TEMP 36.7; O2SAT 99
== END 2020-03-20 11:26 | disposition home or self-care (01) ==
PROVIDERS: Emergency Provider Nurse Practitioner; PCP Internal Medicine Adolescent Medicine
DX: Z20.828 Contact with and (suspected) exposure to other viral communicable diseases (principal); I25.10 Atherosclerotic heart disease of native coronary artery without angina pectoris; E11.9 Type 2 diabetes mellitus without complications; I10 Essential (primary) hypertension; E78.5 Hyperlipidemia, unspecified
CPT/HCPCS: 99201; U0003

== ENCOUNTER → 2020-05-02 13:23 | Outpatient (CLI) | payer MEDICARE, SELFPAY ==
[2020-05-02 14:16] LABS: Basophils # 0.1 K/mm3 (0-0.2); Eosinophils # 0.9 K/mm3 (0.0-0.4); Hematocrit 34.8 % (37.0-47.0); Hemoglobin 11.3 g/dL (12.2-16.2); Lymphocytes # 3.1 K/mm3 (0.7-4.5); Lymphocytes % 36.5 % (10-50); Mean Corpuscular HGB Conc 32.4 g/dL (31.8-35.4); Mean Corpuscular Hemoglobin 31.4 pg (27.0-31.2); Mean Corpuscular Volume 96.8 fl (81-99); Mean Platelet Volume 9.1 fl (7.4-10.4); Monocytes # 0.5 K/mm3 (0.1-1.0); Monocytes % 6.4 % (1.7-9.3); Neutrophils # 3.9 K/mm3 (1.8-7.8); Neutrophils % 46.2 % (37.0-80.0); Platelet Count 306 K/mm3 (142-424); Red Cell Distribution Width 15.1 % (11.5-17.5); White Blood Count 8.5 K/mm3 (4.8-10.8)
[2020-05-02 15:12] LABS: Alanine Aminotransferase 13 U/L (12-78); Albumin Level 4.5 g/dl (3.5-5.0); Albumin/Globulin Ratio 1.5 (1.1-1.8); Alkaline Phosphatase 75 U/L (38-126); Anion Gap 15.8 mEq/L (5-15); Aspartate Amino Transferase 25 U/L (14-36); Bilirubin,Total 0.4 mg/dl (0.2-1.3); Blood Urea Nitrogen 37 mg/dl (7-17); Calcium 9.8 mg/dl (8.4-10.2); Carbon Dioxide 26 mmol/L (22.0-30.0); Chloride 101 mmol/L (98-107); Estimated Glomerular Filt Rate 29 ml/min (>60); GFR (African American) 35 ML/MIN (>60); Glucose 157 mg/dl (74-100); Potassium 5.8 mmoL/L (3.5-5.1); Sodium 137 mmol/L (136-145); Total Protein,Serum 7.5 g/dl (6.3-8.2)
[2020-05-02 17:59] LABS: Hemoglobin A1C 6.3 % (4.0-6.0)
== END ==
PROVIDERS: Visit Provider Internal Medicine Adolescent Medicine
DX: E11.9 Type 2 diabetes mellitus without complications (principal); Z79.84 Long term (current) use of oral hypoglycemic drugs
CPT/HCPCS: 36415; 80053; 83036; 85025

== ENCOUNTER → 2020-06-06 14:56 | Outpatient (CLI) | payer MEDICARE, SELFPAY ==
[2020-06-08 12:08] LABS: Covid-19 Nasal PCR Sendout P&C Negative
== END ==
PROVIDERS: PCP Internal Medicine Adolescent Medicine; Visit Provider Internal Medicine Adolescent Medicine
DX: Z03.818 Encounter for observation for suspected exposure to other biological agents ruled out (principal)
CPT/HCPCS: U0004

== ENCOUNTER 2020-07-30 19:08 | Emergency (ER) | payer MEDICARE, SELFPAY ==
[2020-07-30 19:15] VITALS: BP 144/90; PULSE 88; RESP 18; TEMP 37; O2SAT 98; BMI 32.1
--- NOTE | 2020-07-30 19:48 | HMH.EDUTC ---
[facility] [place]: Cellulitis Qualifiers: Site of cellulitis: extremity Site of cellulitis of extremity: lower extremity Laterality: right Qualified Code(s): L03.115 - Cellulitis of right lower limb Disposition: Home, Self-Care Condition on Discharge: Good Instructions: Cellulitis, Clindamycin Additional Instructions: *Start antibiotic(s) immediately and be sure to take as ordered for the FULL length of time although you may be feeling better or start to see improvement in the next 24-48 hours *Monitor closely. Outlined redness so that you can monitor easier. Follow up immediately for new or worsening symptoms including but not limited to redness, swelling, streaking from site fever or chills. Make sure to take your Probiotic and eat yogurt to help prevent stomach upset *Warm compress 15 minutes 3-4 times day *Never squeeze or pop these on your own. Seek immediate medical attention next time this occurs *Monitor Temp. Tylenol every 4 hours as needed and ibuprofen every 6 hours as needed (as long as your primary care doctor has told you that it is ok to take both. For fever, aches, pain. ER if no less that 101 despite Tylenol and ibuprofen Follow up with your family doctor/primary care physician in the next 48-72 hours if no improvement Return if needed Straight to ER if any life threatening symptoms Prescriptions: clindamycin HCL [Cleocin HCl] 300 mg PO TID 5 Days #15 cap Transmission Status: Received by [facility] Referrals: Aaron Ferguson MD [Primary Care Provider] - As needed Time of Disposition: 20:11 Medical Decision Making - Dariel Inquiry Pt receiving controlled substance: No Dariel was queried for this patient: No Vital Signs: 07/30/20 19:15 07/30/20 20:12 Temperature 98.6 F 98.6 F Temperature Source Oral Pulse Rate 88 Pulse Rate [Right Brachial] 88 Respiratory Rate 18 18 Blood Pressure 144/90 H Blood Pressure [Right Arm] 144/90 H Blood Pressure Mean [Right Arm] 108 Blood Pressure Source [Right Arm] Automatic Cuff Blood Pressure Position [Right Arm] Sitting 02 Sat by Pulse Oximetry 98 Oxygen Delivery Method Room Air Orders (Tests/Meds): ED MEDICATIONS Discontinued Medications Generic Name Dose Route Start Last Admin Trade Name Freq PRN Reason Stop Dose Admin Clindamycin HCl 300 mg 07/30/20 20:11 07/30/20 20:15 Clindamycin 150mg Capsule PO 07/30/20 20:12 300 mg ONCE ONE Administration Protocol Medical Decision Narrative: Due to patient history and allergies medications reviewed with pharmacy and agreed, will place patient on Clindamycin 300mg TID x 5 days and have her follow up with PCP Patient advised that she takes probitoics daily [facility] [place] - General Stated complaint: Muscle in R Leg Red pain Time Seen by Provider: 07/30/20 19:48 Mode of Arrival: Ambulatory Source of Information: Patient Limitations: No Limitations Description of Symptoms (Recalled from Triage Doc. by RN): PATIENT C/O REDNESS AND WARMTH IN RIGHT [place] ON AND OFF FOR A FEW YEARS. PATIENT THINKS SHE HAS CELLULITIS HEENT Symptoms (Recalled from RN notes): No Resp Symptoms (Recalled from RN notes): No Skin Symptoms (Recalled from RN notes): No MS Symptoms (Recalled from RN notes): Yes Functional Status (Recalled from RN notes): WNL - History of Present Illness Provider Complaint: Patient states that she thinks she may be getting cellulitis States that she noticed a red rash like area on her right lower leg State that it was red and warm and looked like cellulitis like her family member had a few years ago State that today it was still there and she was worried about getting cellulitis so she came in to get some antibiotics for it - Related Data Home Medications Medication Instructions Recorded Confirmed Acetaminophen [Tylenol Arthritis] 650 mg PO NEEDED PRN 04/26/18 01/29/20 Cholecalciferol (Vitamin D3) 1,000 iunits PO DAILY 04/26/18 01/29/20 [Vitamin D3 1,00
[2020-07-30 20:12] VITALS: BP 144/90; PULSE 88; RESP 18; TEMP 37; O2SAT 98
== END 2020-07-30 20:19 | disposition home or self-care (01) ==
PROVIDERS: Emergency Provider Nurse Practitioner; PCP Internal Medicine Adolescent Medicine
DX: L03.115 Cellulitis of right lower limb (principal); I25.10 Atherosclerotic heart disease of native coronary artery without angina pectoris; E11.9 Type 2 diabetes mellitus without complications; E78.5 Hyperlipidemia, unspecified; I10 Essential (primary) hypertension; Z88.2 Allergy status to sulfonamides; Z88.5 Allergy status to narcotic agent; Z79.899 Other long term (current) drug therapy
CPT/HCPCS: G0463; 99202

== ENCOUNTER → 2020-10-25 08:34 | Outpatient (CLI) | payer MEDICARE, SELFPAY ==
[2020-10-25 09:34] LABS: Basophils # 0.1 K/mm3 (0-0.2); Basophils % 0.8 % (0.1-2.0); Eosinophils # 0.7 K/mm3 (0.0-0.4); Eosinophils % 9.9 % (0.1-12.0); Hematocrit 32.1 % (37.0-47.0); Hemoglobin 10.6 g/dL (12.2-16.2); Lymphocytes # 2.5 K/mm3 (0.7-4.5); Mean Corpuscular HGB Conc 33.1 g/dL (31.8-35.4); Mean Corpuscular Hemoglobin 31.1 pg (27.0-31.2); Mean Corpuscular Volume 93.9 fl (81-99); Mean Platelet Volume 7.3 fl (7.4-10.4); Monocytes # 0.5 K/mm3 (0.1-1.0); Neutrophils # 3.5 K/mm3 (1.8-7.8); Neutrophils % 48.3 % (37.0-80.0); Platelet Count 240 K/mm3 (142-424); Red Blood Count 3.41 M/mm3 (4.20-5.40); Red Cell Distribution Width 13.4 % (11.5-17.5); White Blood Count 7.3 K/mm3 (4.8-10.8)
[2020-10-25 09:42] LABS: Hemoglobin A1C 7.1 % (4.0-6.0)
[2020-10-25 10:17] LABS: Chloride 108 mmol/L (98-107); Sodium 141 mmol/L (136-145)
[2020-10-25 10:19] LABS: Blood Urea Nitrogen 54 mg/dl (7-17); Estimated Glomerular Filt Rate 31 ml/min (>60); GFR (African American) 38 ML/MIN (>60)
[2020-10-25 10:20] LABS: Alanine Aminotransferase 10 U/L (12-78); Albumin Level 4.6 g/dl (3.5-5.0); Albumin/Globulin Ratio 1.8 (1.1-1.8); Alkaline Phosphatase 82 U/L (38-126); Anion Gap 17.3 mEq/L (5-15); Aspartate Amino Transferase 21 U/L (14-36); Bilirubin,Total 0.3 mg/dl (0.2-1.3); Calcium 9.8 mg/dl (8.4-10.2); Carbon Dioxide 22 mmol/L (22.0-30.0); Cholesterol 181 mg/dl (140-200); Globulin 2.6 g/dL (1.3-3.2); Glucose 126 mg/dl (74-100); Total Protein,Serum 7.2 g/dl (6.3-8.2); Triglycerides 302 mg/dl (30-150); VLDL Cholesterol 60 mg/dL (0-40)
[2020-10-25 10:21] LABS: HDL Cholesterol 36 mg/dl (40-60)
[2020-10-25 10:25] LABS: Potassium 6.3 mmoL/L (3.5-5.1)
[2020-10-25 10:31] LABS: Direct LDL Cholesterol 100.77 mg/dL (100-129)
== END ==
PROVIDERS: Visit Provider Internal Medicine Adolescent Medicine
DX: I25.10 Atherosclerotic heart disease of native coronary artery without angina pectoris (principal); E11.9 Type 2 diabetes mellitus without complications; Z79.84 Long term (current) use of oral hypoglycemic drugs
CPT/HCPCS: 36415; 80053; 80061; 83036; 85025

== ENCOUNTER 2022-03-03 16:47 | Emergency (ER) | payer MEDICARE, SELFPAY ==
[2022-03-03 16:48] VITALS: BP 184/79; PULSE 84; RESP 16; TEMP 36.6; O2SAT 98; BMI 33.2
--- NOTE | 2022-03-03 17:34 | PC.NURSE ---
assisted pt to bathroom
--- NOTE | 2022-03-03 18:26 | PC.NURSE ---
TAL FUNK @ BS doing stitches on pt @ this time
--- NOTE | 2022-03-03 19:01 | HMH.EDGENADL ---
Discharge Plan Disposition Patient Disposition: Home, Self-Care Condition: Good Chief Complaint: Wound/Laceration Prescriptions Prescriptions: No Action tizanidine 2 MG tablet 2 mg PO TID PRN (Reason: Muscle Spasm) simvastatin 5 MG tablet 5 mg PO HS sitagliptin 100 MG tablet 100 mg PO DAILY cetirizine 10 MG tablet 10 mg PO DAILY glyburide 5 MG tablet 5 mg PO BID aspirin 81 MG tablet,delayed release (DR/EC) 81 mg PO DAILY Lactobacillus acidophilus 1 EACH capsule 1 each PO DAILY lisinopril 20 MG tablet 20 mg PO DAILY metformin 1,000 MG tablet 1,000 mg PO BID vitamin E (dl, acetate) 400 UNIT capsule 400 unit PO DAILY carvedilol 12.5 MG tablet 12.5 mg PO BID acetaminophen 650 MG tablet extended release 650 mg PO NEEDED PRN (Reason: PAIN) dicyclomine 20 MG tablet 20 mg PO TIDP PRN (Reason: Cramping) furosemide 20 MG tablet 20 mg PO DAILYP PRN (Reason: FLUID) ondansetron 4 MG tablet,disintegrating 4 mg PO Q8 PRN (Reason: Nausea) diazepam 5 MG tablet 5 mg PO TIDP PRN (Reason: Anxiety) cholecalciferol (vitamin D3) 1,000 UNIT capsule 1,000 iunits PO DAILY sqhsazmr-ngk-VT-lycopen-lutein 1 EACH tablet 1 each PO DAILY red yeast rice 600 MG capsule 600 mg PO BID omega-3 fatty acids-fish oil 1 EACH capsule 1 each PO BID clindamycin HCl 300 MG capsule 300 mg PO TID 5 Days Qty: 15 0RF Referrals Follow up/Referrals: James Fitzpatrick MD [Primary Care Provider] - See instructions Activity Restrictions/Add. Instructions Additional Instructions/Restrictions: Additional instructions for FACIAL LACERATION: Clean the wound daily with soap and water. You may shower. Avoid submerging the wound, no swimming. See your primary care physician or return to the [facility] in 7 days for suture removal. The [facility] is open 8AM to 8PM, 7 days a week. Return if any signs of infection including increasing pain, pus drainage, swelling, redness, red streaks, or fever. Additional instructions for HEAD INJURY: See your physician as soon as possible for further evaluation. Return immediately if severe headache, vomiting, problems with vision or speech, numbness or weakness of the extremities, or severe neck pain. Clinical Impressions Clinical Impression: Ear lobe laceration, Contusion of head, Abrasion of face Discharge ED Provider: Tal Madsen General Adult HPI General Chief complaint: Wound/Laceration Stated complaint: AO@03/03@1647@home injured right side of head Time Seen by Provider: 03/03/22 17:48 Mode of Arrival: Wheelchair Source of Information: Patient Limitations: No Limitations Description of Symptoms (Recalled from ER Triage Doc. by RN): Pt presents with lac to rt earlobe, abrasion to rt cheek, and tenderness to the touch of head above rt ear. Advises that she tripped and lost her balance as she was turning into her bathroom, causing her to hit the rt side of her head on the door frame. History of Present Illness HPI narrative: Patient states she lost her balance and fell against a door frame. She sustained a laceration to her right earlobe. She has some tenderness and swelling above her right ear. She has an abrasion on her right cheek. Denies headache. Denies loss of consciousness. States that her neck always hurts and she cannot tell any difference now. She has a history of chronic back and neck problems. She is on aspirin, no other anticoagulants. Denies any other injuries. States that she has 10 things wrong with my back and has to sleep in a recliner. She has chronic tinnitus, no change since the injury. Related Data Home Medications Medication Instructions Recorded Confirmed acetaminophen 650 mg 650 mg PO NEEDED PRN PAIN 04/26/18 01/29/20 tablet,extended release carvedilol 12.5 mg tablet 12.5 mg PO BID HTN 04/26/18 01/30/20 cholec
[2022-03-03 19:17] VITALS: BP 129/74; PULSE 68; RESP 19; TEMP 36.6; O2SAT 99
== END 2022-03-03 19:20 | disposition home or self-care (01) ==
PROVIDERS: Emergency Provider Emergency Medicine; PCP Internal Medicine Adolescent Medicine
DX: W18.49XA Other slipping, tripping and stumbling without falling, initial encounter (principal); S01.311A Laceration without foreign body of right ear, initial encounter; S00.81XA Abrasion of other part of head, initial encounter; R51.9 Headache, unspecified; Z23 Encounter for immunization; Z79.82 Long term (current) use of aspirin; Z79.899 Other long term (current) drug therapy; Z79.84 Long term (current) use of oral hypoglycemic drugs; Z88.1 Allergy status to other antibiotic agents; Z88.2 Allergy status to sulfonamides; E11.9 Type 2 diabetes mellitus without complications; N28.9 Disorder of kidney and ureter, unspecified
CPT/HCPCS: 12014; 90471; 90714; 99283

== ENCOUNTER 2022-04-15 10:58 | Emergency (ER) | payer MEDICARE, SELFPAY ==
[2022-04-15 10:58] VITALS: BP 151/55; PULSE 88; RESP 18; TEMP 36.8; O2SAT 97; BMI 32.6
[2022-04-15 10:59] VITALS: BMI 32.6
--- NOTE | 2022-04-15 10:59 | CT_ITS ---
FINAL REPORT TECHNIQUE: Axial CT images were performed through the head. Coronal reformatted images were submitted. This study was performed with techniques to keep radiation doses as low as reasonably achievable (ALARA). Individualized dose reduction techniques using automated exposure control or adjustment of mA and/or kV according to the patient's size were employed. CLINICAL HISTORY: STROKE PROTOCOL COMPARISON: January 2020 FINDINGS: The head is asymmetrically positioned in the gantry. There is moderate atrophy with proportionate ventriculomegaly. There is extensive decreased attenuation throughout the deep white matter. There is no evidence of hemorrhage. There is no mass or edema identified. There is no abnormal extra-axial fluid seen. There is mild mucoperiosteal thickening in the maxillary sinuses. There are no air-fluid levels. IMPRESSION: Moderate atrophy with extensive changes of chronic microvascular ischemia. No acute intracranial process. Reviewed, Interpreted and Dictated by Silvestre Modi MD Transcribed by Papito Munguia Authenticated and [facility]
--- NOTE | 2022-04-15 11:00 | XR_ITS ---
FINAL REPORT TECHNIQUE: Single view chest CLINICAL HISTORY: L SIDED NUMBNESS COMPARISON: 01/26/2019 FINDINGS: A single view of the chest was obtained. The heart is mildly enlarged. Patient is status post median sternotomy. A pacemaker is in place. There is a calcified granuloma in the right upper lobe. Scarring is seen at the lung bases. The lungs are otherwise clear. There is no pneumothorax. Osseous structures are unremarkable. IMPRESSION: No acute cardiopulmonary process. Reviewed, Interpreted and Dictated by Silvestre Modi MD Transcribed by Milady Dash Authenticated and [facility]
--- NOTE | 2022-04-15 11:02 | PC.NURSE ---
PT GONE TO CT
--- NOTE | 2022-04-15 11:02 | HMH.EDGENADL ---
Discharge Plan Disposition Patient Disposition: Home, Self-Care Condition: Good Chief Complaint: Weakness Prescriptions Prescriptions: No Action tizanidine 2 MG tablet 2 mg PO TID PRN (Reason: Muscle Spasm) simvastatin 5 MG tablet 5 mg PO HS sitagliptin phosphate 100 MG tablet 100 mg PO DAILY cetirizine 10 MG tablet 10 mg PO DAILY glyburide 5 MG tablet 5 mg PO BID aspirin 81 MG tablet,delayed release (DR/EC) 81 mg PO DAILY Lactobacillus acidophilus 1 EACH capsule 1 each PO DAILY lisinopril 20 MG tablet 20 mg PO DAILY metformin 1,000 MG tablet 1,000 mg PO BID vitamin E (dl, acetate) 400 UNIT capsule 400 unit PO DAILY carvedilol 12.5 MG tablet 12.5 mg PO BID acetaminophen 650 MG tablet extended release 650 mg PO NEEDED PRN (Reason: PAIN) dicyclomine 20 MG tablet 20 mg PO TIDP PRN (Reason: Cramping) furosemide 20 MG tablet 20 mg PO DAILYP PRN (Reason: FLUID) ondansetron 4 MG tablet,disintegrating 4 mg PO Q8 PRN (Reason: Nausea) diazepam 5 MG tablet 5 mg PO TIDP PRN (Reason: Anxiety) cholecalciferol (vitamin D3) 1,000 UNIT capsule 1,000 iunits PO DAILY owkhekfo-nsj-UZ-lycopen-lutein 1 EACH tablet 1 each PO DAILY red yeast rice 600 MG capsule 600 mg PO BID omega-3 fatty acids-fish oil 1 EACH capsule 1 each PO BID clindamycin HCl 300 MG capsule 300 mg PO TID 5 Days Qty: 15 0RF Referrals Follow up/Referrals: Aaron Ferguson MD [Primary Care Provider] - See instructions Clinical Impressions Clinical Impression: Arm paresthesia, left, Cervical disc disorder with radiculopathy Instructions Patient Instructions: DI for Numbness/Tingling, DI for Cervical Radiculopathy Discharge ED Provider: Christ Arnold Adult HPI General Chief complaint: Weakness Stated complaint: weakness Time Seen by Provider: 04/15/22 11:00 Mode of Arrival: Ambulatory Source of Information: Patient Limitations: No Limitations Description of Symptoms (Recalled from ER Triage Doc. by RN): c/o left upper lip, left arm and hand numbness since she woke at 0830 this am. PT went to sleep around midnight last night. States she had no symptoms at that time. States she was able to eat and drink normal this morning. Touch to arms and face feels different in touch to the left side. No weakness noted in extremities at this time. Typical pt states she wakes with this numbness but usually it goes away. PT states she has chronic neck pain and goes to the [place] emergency department. History of Present Illness HPI narrative: 76 yo/F, hx of cervical radiculopathy for which she sees a chiropractor, presents with left hand numbness which she awoke with this AM around 0830. States similar symptoms in the past but thought was worse today as it usually resolves spontaneously. Denies any facial asymmetry, speech deficit, difficulty finding words, difficulty walking. Denies any prior history of CVA, no treatments prior to arrival, she actually reports symptoms seem to improve since onset this morning Related Data Home Medications Medication Instructions Recorded Confirmed acetaminophen 650 mg 650 mg PO NEEDED PRN PAIN 04/26/18 01/29/20 tablet,extended release carvedilol 12.5 mg tablet 12.5 mg PO BID HTN 04/26/18 01/30/20 cholecalciferol (vitamin D3) 25 1,000 iunits PO DAILY Supplement 04/26/18 01/29/20 mcg (1,000 unit) capsule diazepam 5 mg tablet 5 mg PO TIDP PRN Anxiety 04/26/18 01/30/20 dicyclomine 20 mg tablet 20 mg PO TIDP PRN Cramping 04/26/18 01/30/20 furosemide 20 mg tablet 20 mg PO DAILYP PRN FLUID 04/26/18 01/30/20 xfzuathp-eix-mined acid 0.4 1 each PO DAILY Supplement 04/26/18 01/29/20 mg-lycopene 300 mcg-lutein 250 mcg tablet omega-3 fatty acids-fish oil 340 1 each PO BID Supplement 04/26/18 01/29/20 mg-1,000 mg capsule ondansetron 4 mg disintegrating 4 mg PO Q8 PRN Nausea 04/26/18 01/29/20 tablet
[2022-04-15 11:12] LABS: Basophils # 0.1 K/mm3 (0-0.2); Basophils % 0.8 % (0.1-2.0); Eosinophils # 1.1 K/mm3 (0.0-0.4); Eosinophils % 13.5 % (0.1-12.0); Hematocrit 34.9 % (37.0-47.0); Hemoglobin 11.3 g/dL (12.2-16.2); Lymphocytes # 0.9 K/mm3 (0.7-4.5); Lymphocytes % 10.6 % (10-50); Mean Corpuscular HGB Conc 32.5 g/dL (31.8-35.4); Mean Corpuscular Hemoglobin 29.4 pg (27.0-31.2); Mean Corpuscular Volume 90.7 fl (81-99); Mean Platelet Volume 7.1 fl (7.4-10.4); Monocytes # 0.6 K/mm3 (0.1-1.0); Monocytes % 7.4 % (1.7-9.3); Neutrophils # 5.4 K/mm3 (1.8-7.8); Neutrophils % 67.6 % (37.0-80.0); Platelet Count 265 K/mm3 (142-424); Red Blood Count 3.84 M/mm3 (4.20-5.40); Red Cell Distribution Width 16.5 % (11.5-17.5)
[2022-04-15 11:19] LABS: Chloride 93 mmol/L (98-107); Sodium 131 mmol/L (136-145)
[2022-04-15 11:20] LABS: Potassium 4.3 mmoL/L (3.5-5.1)
[2022-04-15 11:22] LABS: Blood Urea Nitrogen 41 mg/dl (7-17); Creatinine Clearance Estimated 44 mL/min (50-200); Estimated Glomerular Filt Rate 40 ml/min (>60); GFR (African American) 48 ML/MIN (>60)
[2022-04-15 11:23] LABS: Anion Gap 16.3 mEq/L (5-15); Calcium 9.5 mg/dl (8.4-10.2); Carbon Dioxide 26 mmol/L (22.0-30.0); Glucose 144 mg/dl (74-100)
[2022-04-15 11:31] VITALS: BP 131/45; PULSE 91; RESP 18; O2SAT 95
[2022-04-15 11:35] LABS: Troponin I < 0.01 ng/ml (0.00-0.034)
[2022-04-15 12:00] VITALS: BP 121/59; PULSE 82; O2SAT 95
--- NOTE | 2022-04-15 12:08 | ECG_ITS ---
APPROVED REPORT Exam: Resting ECG HR:80 bpm ECG Measurements Heart Rate 80 AXES QRSd 126 QRS 3 QT 380 T 47 QTc 416 Conclusion ATRIAL FIBRILLATION ANTEROSEPTAL MYOCARDIAL INFARCTION , PROBABLY OLD [40+ ms Q WAVE IN V1-V4] ABNORMAL ECG UNCONFIRMED REPORT Electronically signed by : Aaron Ferguson MD 04/15/2022 21:39:09
[2022-04-15 12:30] VITALS: BP 118/53; PULSE 80; O2SAT 95
[2022-04-15 12:39] VITALS: BP 118/53; PULSE 77; RESP 19; TEMP 36.8; O2SAT 95
== END 2022-04-15 12:40 | disposition home or self-care (01) ==
PROVIDERS: Emergency Provider Emergency Medicine; PCP Internal Medicine Adolescent Medicine
DX: M50.10 Cervical disc disorder with radiculopathy, unspecified cervical region (principal); R20.2 Paresthesia of skin
CPT/HCPCS: 70450; 71045; 80048; 84484; 85025; 93005; 99285

== ENCOUNTER → 2022-05-07 13:46 | Outpatient (CLI) | payer MEDICARE, SELFPAY ==
--- NOTE | 2022-05-07 13:52 | CT_ITS ---
FINAL REPORT TECHNIQUE: Thin section axial CT with sagittal reconstruction without contrast CLINICAL HISTORY: DDD,CERVICALGIA FINDINGS: There are advanced degenerative disc changes, most pronounced at C4-5 and C5-6. There is no fracture or malalignment. There is no bony canal stenosis. There is bony neural foraminal narrowing bilaterally at C4-5. IMPRESSION: Degenerative changes without acute fracture. Reviewed, Interpreted and Dictated by Prakash Recio MD Transcribed by Opal Charles Authenticated and [facility]
== END ==
PROVIDERS: PCP Internal Medicine Adolescent Medicine; Visit Provider Internal Medicine Adolescent Medicine
DX: M54.2 Cervicalgia (principal)
CPT/HCPCS: 72125

== ENCOUNTER → 2022-05-13 11:42 | Outpatient (POV) | payer MEDICARE, SELFPAY ==
[2022-05-13 12:12] VITALS: BP 170/74; PULSE 92; RESP 18; O2SAT 95; BMI 32.6
--- NOTE | 2022-05-13 13:14 | EXP.PAIN.OV ---
HPI Data of Consult Patient: new to practice Consult date: 05/13/22 Requesting Physician: Constance Sommers APRN Primary Care Provider: Aaron Ferguson MD Consult Narrative Reason for consult: Neck pain, left arm pain History of present illness: Ms. Craig is a 76 year old female is a new patient. She was a referral from Elayne Lipscomb' office. Today she rates her pain a 7 out of 10. Patient states that her pain is all in her neck with radiating symptoms into her left arm of numbness and tingling. Patient states this has been going on over the last 8 months however worsened approximately 1 month ago and she did go to ER to be evaluated for possible stroke however her CT was negative. Patient states she was told that she probably had a pinched nerve in her cervical spine from her primary care provider and was referred to our office. Patient describes this as a aching, throbbing sensation that is worse with increased activity. Patient states that she does have a history of lower spine pain that is been going on for years and did actually see our office where we gave injections in the past. Patient states she does have a history of degenerative disc disease and arthritis. Patient also states she has scoliosis and cardiac history such as CHF and mitral valve leaking. Patient states she did have to have open heart surgery due to an ejection fracture of 15% years ago. Patient states she has had bilateral knee replacements, right trigger finger release, carpal tunnel as well as a right hip replacement in the past. Patient has also had right shoulder injections that provided significant improvement. Patient states she frequently has bilateral shoulder pain. Patient has been to physical therapy in the past however it provided no improvement of her symptoms. Patient states she does see a chiropractor in [place] on a regular basis that does provide significant relief. Patient states she does use Tylenol daily to help manage her pain symptoms and only rarely uses Aleve due to her cardiac issues. Patient does use a CBD extract cream prescribed from her doctor to provide improvement of symptoms. Patient is currently managed with diazepam 5 mg 3 times a day from Dr. Fitzpatrick's office. Patient does use a cane for ambulation. Her Dariel is [phone]. It has been reviewed and appropriate. CC: Constance Sommers APRN [facility] Disclaimer: The information contained in this section may have been updated after the patient was seen, as this information can be updated by other users. Medical History (Updated 05/13/22 @ 13:15 by Constance Sommers APRN) CHF (congestive heart failure) Diabetes GERD (gastroesophageal reflux disease) HLD (hyperlipidemia) HTN (hypertension) Retinopathy Surgical History (Updated 05/13/22 @ 12:33 by Laina Dent RN) H/O colonoscopy H/O total knee replacement S/P CABG (coronary artery bypass graft) S/P MVR (mitral valve repair) Social History (Updated 05/13/22 @ 12:34 by Laina Dent RN) Smoking Status: Never smoker alcohol intake: never current occupational status: retired and other Travel in the last 8 weeks: None household members: spouse housing: house caffeine: No Review of Systems Review of Systems Review of systems:: pertinent systems reviewed and negative unless documented below Review of systems (narrative): Review of Systems: General: No recent weight changes, no fever, no sleep disturbances Respiratory: No cough, no shortness of air, no recurring pulmonary infections Cardiovascular/peripheral vascular: No chest pain, no palpitations, no edema, no shortness of breath Gastrointestinal: No new onset incontinence, normal bowel movements reported Genitourinary: No new onset incontinence Musculoskeletal: Neck pain, left arm pain Psychiatric: [Normal mood/affect] Neurological: [Denies weakness in extremities], [denies balance issues] Meds Home Medications and Allergies Home Medications Medic
== END ==
PROVIDERS: PCP Internal Medicine Adolescent Medicine; Visit Provider Nurse Practitioner Family
DX: M54.50 Low back pain, unspecified; M50.123 Cervical disc disorder at C6-C7 level with radiculopathy
CPT/HCPCS: 99202; G0463

== ENCOUNTER → 2022-06-13 08:56 | Outpatient (POV) | payer MEDICARE, SELFPAY ==
[2022-06-13 09:50] VITALS: BP 121/46; PULSE 90; RESP 18; O2SAT 97; BMI 30.6
--- NOTE | 2022-06-13 10:01 | EXP.PAIN.SOA ---
[facility] Pain Management SOAP Note Subjective:: Patient is a pleasant 77-year-old female who is here for follow-up. We are currently treating the patient for degenerative disc disease of cervical spine with cervical radiculopathy symptoms, neck pain, low back pain. Today she rates her pain a 9 out of 10. Patient states she has had worsening symptoms from the last time we saw her. Patient states that approximately last Friday she started having muscle spasms in around her C7 that radiated to her left shoulder blade and down her spine. Patient states that she has continue to use her Marcos hemp cream along with a heating pad and ice. Patient does state that the ice helps better than the heating pad and she continues to see physical therapy. Patient states that they did do some massage last week that did provide significant improvement. Patient states she is today back to experiencing worsening pain symptoms. Previously we did plan to schedule her for a cervical epidural at C6-C7 however she is on a full dose aspirin from Dr. Darling's office and needs to come off this medication prior to the injection. Patient states that she has been unable to get an appointment for Dr. Darling's office until around June 23. Patient is currently managed with diazepam 5 mg 3 times a day from Dr. Rosado's office. Patient denies any side effects from this medication. Her Dariel is [phone]. Its been reviewed and appropriate. Review of Systems: General: No recent weight changes, no fever, no sleep disturbances Respiratory: No cough, no shortness of air, no recurring pulmonary infections Cardiovascular/peripheral vascular: No chest pain, no palpitations, no edema, no shortness of breath Gastrointestinal: No new onset incontinence, normal bowel movements reported Genitourinary: No new onset incontinence Musculoskeletal: Neck pain Psychiatric: [Normal mood/affect] Neurological: [Denies weakness in extremities], [denies balance issues] Objective:: Physical Exam: General: Alert and oriented x3, no acute distress, pleasant and cooperative Lungs: Respirations even and unlabored, symmetrical chest expansion Eyes: PERRL Musculoskeletal: Flexion and extension of cervical [spine] somewhat guarded secondary to pain, [antalgic gait noted] Neurological: Speech clear, no gross sensory deficit ORT score updated with low risk Assessment:: Degenerative disc disease of cervical spine with cervical radiculopathy symptoms, neck pain, low back pain Plan:: Patient is experiencing significant pain in her neck with muscle spasms. Patient did have limited range of motion of her cervical spine during today's visit. I have discussed with the patient that until we can get her in for her cervical epidural I will add a muscle relaxer to her medication regimen. I will order the patient tizanidine 4 mg twice daily and provide a 14-day supply of this medication. I will also order the patient a compounding cream during today's visit. Patient will contact our office once she has had her appointment with Dr. Darling in order to schedule her cervical epidural steroid injection at C6-C7. Patient has been instructed to contact the clinic with any concerns before the next appointment. Dr. Mendez has reviewed this note and agrees with this plan of care. This note was dictated using voice recognition software and make contain errors or omissions. [facility] Disclaimer: The information contained in this section may have been updated after the patient was seen, as this information can be updated by other users. Medical History (Updated 05/13/22 @ 13:15 by Constance Sommers APRN) CHF (congestive heart failure) Diabetes GERD (gastroesophageal reflux disease) HLD (hyperlipidemia) HTN (hypertension) Retinopathy Surgical History (Updated 05/13/22 @ 12:33 by Laina Dent RN) H/O colonoscopy H/O total knee replacement S/P CABG (coronary artery bypass graft) S/P MVR (mitral valve repair) Social Hist
== END | disposition home or self-care (01) ==
PROVIDERS: PCP Internal Medicine Adolescent Medicine; Visit Provider Nurse Practitioner Family
DX: M50.123 Cervical disc disorder at C6-C7 level with radiculopathy (principal); M54.50 Low back pain, unspecified
CPT/HCPCS: 99212; G0463

== ENCOUNTER 2022-06-18 16:00 | Outpatient (RCR) | payer MEDICARE, SELFPAY ==
--- NOTE | 2022-05-20 16:01 | HMH.PTOPEV ---
PT Outpatient Evaluation Rehab PT Outpatient Evaluation Start: 05/20/22 15:49 Freq: Status: Active Protocol: Document 05/20/22 15:49 ADONIS (Rec: 05/20/22 16:00 ADONIS [id number]) E-signed By Reyes Lauren, PT Outpatient Therapy Subjective History Subjective History This is the initial PT eval for Shayy Craig 76 yowf who presents with 1 fall in the past 6 mos ~ 3 mos ago. She reports, I tripped over air and fell into a door frame. She does present using a standard cane for ambulation this date. She has multiple co -morbid conditions which effect her overall mobility, including DDD, scoliosis, stenosis, B TKA, R JULIEN, CABG with R vein graft harvest. She reports significant pain throughout her back and worsening numbness/weakness in her L hand. Chief Complaint Pain,Decreased Coordination Symptom Type Ache Symptoms Relieved By Rest/Positioning Symptoms Aggravated By Physical Activity Prior Functional Limitations None Current Functional Limitations Walking Symptom Description Constant but Variable Balance Eval Hx of Falls Hx Falls Yes Number in last 6 months 1 Gait/Posture Asssessment General Gait Observation Wide Based Gait,Shuffling Step Assistive Devices Straight Cane Dynamic Gait Index Test Protocol Gait Level Surface Mild Impairment Query Text: Instructions: Walk at your normal speed from here to the next alireza (20'). Grading: Alireza the lowest category that applies. Change in Gait Speed Mild Impairment Query Text: Instructions: Begin walking at your normal pace (for 5'), when I tell you go , walk as fast as you can (for 5'). When I tell you slow , walk as slowly as you can (for 5'). Grading: Alireza the lowest category that applies. Gait with Horizontal Head Turns Mild Impairment Query Text: Instructions: Begin walking at your normal pace. When I tell you to look right , keep walking straight, but turn you head to the right. Keep looking to the right unit I tell you look left , then keep walking straight and turn your head to the left. Keep your head to the left until I tell you look straight , then keep walking straig
== END 2022-06-18 16:05 | disposition home or self-care (01) ==
LOC: PT 16:00
PROVIDERS: PCP Internal Medicine Adolescent Medicine; Visit Provider Internal Medicine Adolescent Medicine
DX: R29.6 Repeated falls (principal)
CPT/HCPCS: 97110; 97116; 97163; 97530

== ENCOUNTER 2022-09-20 14:00 | Outpatient (RCR) | payer MEDICARE, SELFPAY ==
--- NOTE | 2022-06-21 11:25 | HMH.PTOPEV ---
PT Outpatient Evaluation Rehab PT Outpatient Evaluation Start: 06/21/22 11:05 Freq: Status: Active Protocol: Document 06/21/22 11:17 TED (Rec: 06/21/22 11:25 TED [id number]) E-signed By Kurt Yuan, PT Outpatient Therapy Subjective History Subjective History Pt reports insidious onset left sided neck pain beginning ~1 month ago. Pt reports s/s progressions w/radicular s/s from left upper arm to left hand intermittently, including weakness and N&T. Pt reports recent Xrays of cervical spine have revealed DDD and DJD. PMH: scoliosis lumbar spine Chief Complaint Pain,Stiff,Paresthesia, Weakness Symptom Type Ache,Sharp,Dull,Numbness, Tingling Symptoms Relieved By Rest/Positioning,OTC Meds Symptoms Aggravated By Physical Activity,Lifting Prior Functional Limitations Reaching,Lifting,Housework Current Functional Limitations Reaching,Lifting,Housework Symptom Description Constant but Variable Level of pain today (0-10) 9 Pain scale - at its best (0-10) 9 Pain scale - at its worst (0-10) 10 Cervical Eval Palpation Cervical Muscles L Cervical Paraspinal,L SCM,R CT Junction,L CT Junction,L Upper Trapezius Cervical/Thoracic Palpation Findings Tenderness,Spasm,Trigger Point ,Muscle Guarding Posture Head/C-Spine Posture Sitting Position Flexed,Side Bent Left Head/C-Spine Posture Standing Position Flexed,Side Bent Left Flexibility Deficits Upper Trapezius Muscle Length (L) Severe Tightness Scalene Group Muscle Length (L) Severe Tightness Passive Joint Mobility Cervical PIVM Dec: R OA L OA R AA L AA R C2/3 L C2/3 R C3/4 L C3/4 R C4/5 L C4/5 R C5/6 L C5/6 R C6/7 L C6/7 R C7/T1 L C7/T1 AROM Cervical Spine Extension Active Range of 0-20 Motion (degrees) Cervical Spine Flexion Active Range of 0-35 Motion (degrees)
--- NOTE | 2022-07-24 14:24 | HMH.RHREAS ---
Rehab Reassessment Rehab OP Re-assessment Start: 07/24/22 14:16 Freq: Status: Active Protocol: Document 07/24/22 14:17 TED (Rec: 07/24/22 14:24 TED [id number]) E-signed By Kurt Yuan, PT Rehab Re-assessment Subjective Subjective Pt reports significant improvements in neck pain at 2 /10 on VAS, and feels 60-65% better overall since I eval Objective Objective Notes CROM: FLX 0-55, EXT 0-30, R SB 0-10, L SB 0-40, B/L ROT 0-45 MMT: LEFT SH FLX 3+/5, L SH ABD 3+--4/5, L BICEP 4/5, L TRICEP 4/5 TTP: LEFT UT MM 2-3/4, RIGHT UT MM 1-2/4 Assessment Progress Assessment Progressing as Expected Assessment Notes SIGNIFICANT IMPROVEMENTS IN CROM, STRENGTH IN LEFT UE, AND SLIGHT IMPROVEMENT IN TTP Patient goals met STG'S 11/13 Goals Not Met STG'S 06/15, LTG'S 12/13 Plan Plan Pt to continue w/skilled P.T. to make further improvements in CROM, strength, and TTP to allow for optimal function Frequency of Therapy 1-2x/wk Duration of therapy 3-5wks Time and Billing Re-Eval Time 12 Re-Eval Billing Units 1 PHYSICIAN CERTIFICATION: I certify the specified therapy services for Shayy Craig are required, authorized, and reviewed every 30 days.
--- NOTE | 2022-08-20 11:59 | HMH.RHREAS ---
Rehab Reassessment Rehab OP Re-assessment Start: 07/24/22 14:16 Freq: Status: Active Protocol: Document 08/20/22 11:02 [email or web address] (Rec: 08/20/22 11:59 TED [id number]) E-signed By Kurt Yuan, PT Rehab Re-assessment Subjective Subjective Pt reports neck pain at 2-3/10 on VAS, and feels 60-65% better overall since I eval Objective Objective Notes CROM: FLX 0-65, EXT 0-35, R SB 0-20, L SB 0-45, B/L ROT 0-65 MMT: LEFT SH FLX 4--4/5, L SH ABD 4--4/5, L BICEP 4/5, L TRICEP 4/5 TTP: LEFT UT MM 2-3/4, RIGHT UT MM 1-2/4 Assessment Progress Assessment Progressing as Expected Assessment Notes IMPROVED CROM AND STRENGTH Patient goals met STG'S 11/13 LTG'S 08/13 Goals Not Met STG'S 06/15, LTG'S 09/13 Plan Plan Pt to continue w/skilled P.T. to make further improvements in CROM, strength, and TTP to allow for optimal function Frequency of Therapy 1-2X/WK Duration of therapy 2-4WKS Time and Billing Re-Eval Time 11 Re-Eval Billing Units 0 PHYSICIAN CERTIFICATION: I certify the specified therapy services for Shayy Craig are required, authorized, and reviewed every 30 days.
--- NOTE | 2022-09-20 13:51 | HMH.RHREAS ---
Rehab Reassessment Rehab OP Re-assessment Start: 07/24/22 14:16 Freq: Status: Active Protocol: Document 09/20/22 13:46 TED (Rec: 09/20/22 13:50 TED [id number]) E-signed By Kurt Yuan, PT Rehab Re-assessment Subjective Subjective Pt reports neck pain at 2-3/10 on VAS, and feels 70-75% better overall since I eval Objective Objective Notes CROM: FLX 0-60, EXT 0-35, R SB 0-20, L SB 0-45, B/L ROT 0-60 MMT: LEFT SH FLX 4--4/5, L SH ABD 4--4/5, L BICEP 4/5, L TRICEP 4/5, B/L WRIST FLX,EXT 4/5, B/L FINGER ABD 4/5, THUMB ABD 4/5 TTP: LEFT UT MM 2-3/4, RIGHT UT MM 2-3/4, R SCALENE 2-3/4 Assessment Progress Assessment No Progress Assessment Notes PT HAS PLATEAUED W/CROM, STRENGTH, AND TTP Patient goals met STG'S 7 LTG'S 3/7 Goals Not Met STG'S 06/15, LTG'S 09/13 Plan Plan Pt has been advised to continue w/HEP and with use of home cervical trxn unit, however, d/t lack of objective progress pt will be D/C'd from [facility] Frequency of Therapy na Duration of therapy na Time and Billing Re-Eval Time 11 Re-Eval Billing Units 0 PHYSICIAN CERTIFICATION: I certify the specified therapy services for Shayy Craig are required, authorized, and reviewed every 30 days.
== END 2022-09-20 14:05 | disposition home or self-care (01) ==
LOC: PT 14:00
PROVIDERS: PCP Internal Medicine Adolescent Medicine; Visit Provider Internal Medicine Adolescent Medicine
DX: M54.12 Radiculopathy, cervical region (principal)
CPT/HCPCS: 97010; 97014; 97035; 97110; 97140; 97163; 97164; G0283

== ENCOUNTER 2023-02-07 14:00 | Outpatient (RCR) | payer MEDICARE, SELFPAY ==
--- NOTE | 2023-01-21 16:25 | HMH.OTOPEV ---
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 Patient reporte to have CTR on B wrist ~4-5 years ago with pain relief, however in the past year numbness and tingling has returned. AROM of B UE wrist WFL. Chief Complaint Paresthesia,Decreased First Mate Strength Symptom Type Numbness,Tingling Symptoms Relieved By Nothing Level of pain today (0-10) 0 Pain scale - at its best (0-10) 0 Pain scale - at its worst (0-10) 0 Wrist/Hand Eval First Mate/Pinch Strength Right First Mate Strength Measurement (lbs) 25 Left First Mate Strength Measurement (lbs) 25 OT Outpatient Assessment Impairments Problems/Impairments Impaired Strength Prognosis Rehab Potential Good Clinical Impression Consistent with Diagnosis Yes Short Term Goals Number of Weeks 2 Increase Strength Yes: Improve B UE revenue manager strength to 30# Patient to be Ind w/ Advanced HEP Yes: Strengthening Fpc Goals Number of Weeks 4 Increase Strength Yes: Improve B UE revenue manager strength to 35# Patient to be Ind w/ Advanced HEP Yes: Advance strengthening Outpatient Therapy Plan of Care Treatment Plan May Include Therapeutic Exercise Including Home Yes Exercise Program Manual Therapy Techniques Yes Therapeutic Activities to Return to Yes Previous Functional/Work Level Thermal Modalities Yes Eval/Re-Eval Yes Aquatic Therapy Yes Frequency Times per week 2x/wk Duration Number of Weeks 4 weeks Addendums This patient is a candidate for social No or vocational rehab? Patient/Guardian verbally acknowledges Yes understanding of treatment program and consents to further treatment? Patient/Guardian verbally acknowledges Yes understanding of diagnosis, prognosis and goals for treatmen
== END 2023-02-07 14:05 | disposition home or self-care (01) ==
LOC: OT 14:00
PROVIDERS: PCP Internal Medicine Adolescent Medicine; Visit Provider Specialist
DX: G56.03 Carpal tunnel syndrome, bilateral upper limbs (principal)
CPT/HCPCS: 97010; 97110; 97140; 97165; 97530

== ENCOUNTER 2023-02-07 15:00 | Outpatient (RCR) | payer MEDICARE, SELFPAY ==
--- NOTE | 2023-01-23 14:33 | HMH.PTOPEV ---
PT Outpatient Evaluation Rehab PT Outpatient Evaluation Start: 01/23/23 14:21 Freq: Status: Active Protocol: Document 01/23/23 14:21 TED (Rec: 01/23/23 14:33 TED [id number]) E-signed By Kurt Yuan, PT Outpatient Therapy Subjective History Subjective History Pt reports h/o chronic neck beginning consistently ~10-12 months ago. Pt reports most recent excaerbation seems to be more intense on the right side than the left. Pt reports right UT mm area refers pain into periscapular region, and left sided neck pain refers into UT mm area. Pt reports recent imaging studies have revealed 'stenosis, bone spurs , arthritis, and DDD' in the cervical spine. PMH: chronic right shoulder pain, left hand CTS, pacemaker, lumbar scoliosis Chief Complaint Pain,Stiff,Paresthesia, Weakness Symptom Type Ache,Throb,Dull,Stabbing Symptoms Relieved By Rest/Positioning,Heat Symptoms Aggravated By Physical Activity,Lifting Prior Functional Limitations Lifting,Housework,Driving Current Functional Limitations Lifting,Housework,Driving Symptom Description Constant and Continuous Level of pain today (0-10) 10 Pain scale - at its best (0-10) 10 Pain scale - at its worst (0-10) 10 Cervical Eval Palpation Cervical Muscles R Cervical Paraspinal,L Cervical Paraspinal,R Suboccipital,L Suboccipital,R CT Junction,L CT Junction,R Upper Trapezius,L Upper Trapezius,R Thoracic Paraspinals,L Thoracic Paraspinals Cervical/Thoracic Palpation Findings Tenderness,Muscle Guarding Posture Head/C-Spine Posture Sitting Position Side Bent Left Head/C-Spine Posture Standing Position Side Bent Left Flexibility Deficits Upper Trapezius Muscle Length (R) Mild Tightness,(L) Severe Tightness Scalene Group Muscle Length (R) Mild Tightness,(L) Severe Tightness Passive Joint Mobility Cervical PIVM Dec: R OA L OA R AA L AA R C2/3
--- NOTE | 2023-01-23 14:37 | HMH.PTOPEV ---
PT Outpatient Evaluation Rehab PT Outpatient Evaluation Start: 01/23/23 14:21 Freq: Status: Active Protocol: Document 01/23/23 14:21 TED (Rec: 01/23/23 14:33 TED [id number]) E-signed By Kurt Yuan, PT Outpatient Therapy Subjective History Subjective History Pt reports h/o chronic neck beginning consistently ~10-12 months ago. Pt reports most recent excaerbation seems to be more intense on the right side than the left. Pt reports right UT mm area refers pain into periscapular region, and left sided neck pain refers into UT mm area. Pt reports recent imaging studies have revealed 'stenosis, bone spurs , arthritis, and DDD' in the cervical spine. PMH: chronic right shoulder pain, left hand CTS, Afib, lumbar scoliosis Chief Complaint Pain,Stiff,Paresthesia, Weakness Symptom Type Ache,Throb,Dull,Stabbing Symptoms Relieved By Rest/Positioning,Heat Symptoms Aggravated By Physical Activity,Lifting Prior Functional Limitations Lifting,Housework,Driving Current Functional Limitations Lifting,Housework,Driving Symptom Description Constant and Continuous Level of pain today (0-10) 10 Pain scale - at its best (0-10) 10 Pain scale - at its worst (0-10) 10 Cervical Eval Palpation Cervical Muscles R Cervical Paraspinal,L Cervical Paraspinal,R Suboccipital,L Suboccipital,R CT Junction,L CT Junction,R Upper Trapezius,L Upper Trapezius,R Thoracic Paraspinals,L Thoracic Paraspinals Cervical/Thoracic Palpation Findings Tenderness,Muscle Guarding Posture Head/C-Spine Posture Sitting Position Side Bent Left Head/C-Spine Posture Standing Position Side Bent Left Flexibility Deficits Upper Trapezius Muscle Length (R) Mild Tightness,(L) Severe Tightness Scalene Group Muscle Length (R) Mild Tightness,(L) Severe Tightness Passive Joint Mobility Cervical PIVM Dec: R OA L OA R AA L AA R C2/3 L
== END 2023-02-07 15:05 | disposition home or self-care (01) ==
LOC: PT 15:00
PROVIDERS: PCP Internal Medicine Adolescent Medicine; Visit Provider Specialist
DX: M54.2 Cervicalgia (principal); M47.12 Other spondylosis with myelopathy, cervical region; M47.22 Other spondylosis with radiculopathy, cervical region; G24.3 Spasmodic torticollis
CPT/HCPCS: 97010; 97035; 97110; 97140; 97163; 97530

== ENCOUNTER 2023-03-23 14:03 | Emergency (ER) | payer MEDICARE, SELFPAY ==
[2023-03-23 14:20] VITALS: BP 116/74; PULSE 88; RESP 19; TEMP 36.8; O2SAT 98; BMI 26.2
--- NOTE | 2023-03-23 15:07 | EXP.UTC ---
Discharge Plan Disposition Patient Disposition: Home, Self-Care Condition: Fair Prescriptions Prescriptions: New levofloxacin 750 mg tablet 750 mg PO DAILY 7 Days Qty: 7 0RF No Action losartan 25 mg tablet 25 mg PO DAILY ferrous sulfate [FeroSul] 325 mg (65 mg iron) tablet 325 mg PO DAILY fluticasone propionate 50 mcg/actuation spray,suspension 1 spray intranasal PRN glimepiride 4 mg tablet 2 mg PO BID duloxetine 60 mg capsule,delayed release(DR/EC) 60 mg PO QAM Qty: 30 6RF simvastatin 5 MG tablet 5 mg PO HS sitagliptin phosphate 100 MG tablet 100 mg PO DAILY cetirizine 10 MG tablet 10 mg PO DAILY aspirin 81 MG tablet,delayed release (DR/EC) 325 mg PO DAILY Lactobacillus acidophilus 1 EACH capsule 1 each PO DAILY vitamin E (dl, acetate) 400 UNIT capsule 400 unit PO DAILY metformin 1,000 mg tablet 500 mg PO BID carvedilol 12.5 MG tablet 12.5 mg PO BID acetaminophen 650 MG tablet extended release 650 mg PO NEEDED PRN (Reason: PAIN) dicyclomine 20 MG tablet 20 mg PO TIDP PRN (Reason: Cramping) diazepam 5 MG tablet 5 mg PO TIDP PRN (Reason: Anxiety) hzuzdbad-xgs-XR-lycopen-lutein 1 EACH tablet 1 each PO DAILY red yeast rice 600 MG capsule 600 mg PO BID omega-3 fatty acids-fish oil 1 EACH capsule 1 each PO BID furosemide 20 mg tablet 20 mg PO DAILYP Referrals Follow up/Referrals: Provider,Referral, MD [Primary Care Provider] - See instructions Activity Restrictions/Add. Instructions Additional Instructions/Restrictions: At this time is felt you are safe to be discharged home. If new or worsening symptoms please do not hesitate to return the emergency department. Please take antibiotics as prescribed in addition to your clindamycin. Please follow-up with your recycling sorter as soon as you are able. Clinical Impressions Clinical Impression: Infection of great toe, Cellulitis Discharge ED Provider: Blair Jenkins [facility] General Chief complaint: Extremity Injury, Lower Stated complaint: sore on left foot Mode of Arrival: Ambulatory Source of Information: Patient Limitations: No Limitations Time Seen by Provider: 03/23/23 15:07 Description of Symptoms (Recalled from Triage Doc. by RN): PATIENT C/O SORE ON LEFT GREAT TOE X 3 DAYS HEENT Symptoms (Recalled from RN notes): No Resp Symptoms (Recalled from RN notes): No Skin Symptoms (Recalled from RN notes): Yes MS Symptoms (Recalled from RN notes): No Functional Status (Recalled from RN notes): WNL History of Present Illness Provider Complaint: Patient states that she is a diabetic States that she noticed place on the end of her left great toe that was dry like a callus a few weeks ago from her shoe rubbing and states over the last several days has been red and swollen with redness extending across the top of her foot States that her Machine Accountant has been out of office so she spoke with someone there at the office and told them what it was doing and they put her on Clindamycin and bacitracin States that she has been taking it but today she noticed another area that looked like it starting and the redness and swelling in the toe has not improved so they told she may need to come in and get it looked at worried that the infection may be getting worse Related Data Home Medications Medication Instructions Recorded Confirmed acetaminophen 650 mg 650 mg PO NEEDED PRN PAIN 04/26/18 01/14/23 tablet,extended release carvedilol 12.5 mg tablet 12.5 mg PO BID HTN 04/26/18 01/14/23 diazepam 5 mg tablet 5 mg PO TIDP PRN Anxiety 04/26/18 01/14/23 dicyclomine 20 mg tablet 20 mg PO TIDP PRN Cramping 04/26/18 01/14/23 ggbnvyyf-hya-ujdnj acid 0.4 1 each PO DAILY Supplement 04/26/18 01/14/23 mg-lycopene 300 mcg-lutein 250 mcg tablet omega-3 fatty acids-fish oil 340 1 each PO BID Supplement 04/26/18 01/14/23 mg-1,000 mg capsule
--- NOTE | 2023-03-23 15:27 | PC.NURSE ---
PATIENT SENT TO ER PER Yolanda BEAL APRN FOR FURTHER EVALUATION. REPORT GIVEN TO DR. STEELE BY Yolanda BEAL APRN. PATIENT TRANSPORTED TO ER VIA WHEELCHAIR WITH [facility] STAFF ASSIST AT THIS TIME. FAMILY AT BEDSIDE
--- NOTE | 2023-03-23 15:28 | PC.NURSE ---
pt arrived to room 8 in er, was a transfer from [facility]
[2023-03-23 15:29] VITALS: BP 178/66; PULSE 84; O2SAT 98
[2023-03-23 15:30] VITALS: BP 175/87; PULSE 82; O2SAT 98
[2023-03-23 15:35] VITALS: BP 178/66; PULSE 83; RESP 18; TEMP 37.1; O2SAT 98; BMI 31.8
--- NOTE | 2023-03-23 15:41 | XR_ITS ---
PROCEDURE INFORMATION: Exam: XR Left Foot Exam date and time: 03/23/2023 3:45 PM Age: 77 years old Clinical indication: Pain; Toes; Prior surgery; Surgery date: <1 month; Surgery type: Callus removed on left great toe x 2 weeks ago; Additional info: Great toe infection TECHNIQUE: Imaging protocol: Radiologic exam of the left foot. Views: 1 or 2 views. COMPARISON: EXT US EXTREMITIES LT COMPLETE 04/19/2016 2:42 PM FINDINGS: Bones/joints: No fractures, dislocations, or focal bone lesions. Small plantar and Achilles heel spurs. Soft tissues: No masses, soft tissue gas, or radiopaque foreign bodies. Arterial calcifications. IMPRESSION: No acute findings in the left foot.
--- NOTE | 2023-03-23 15:43 | HMH.EDGENADL ---
Discharge Plan Disposition Patient Disposition: Home, Self-Care Condition: Fair Prescriptions Prescriptions: New levofloxacin 750 mg tablet 750 mg PO DAILY 7 Days Qty: 7 0RF No Action losartan 25 mg tablet 25 mg PO DAILY ferrous sulfate [FeroSul] 325 mg (65 mg iron) tablet 325 mg PO DAILY fluticasone propionate 50 mcg/actuation spray,suspension 1 spray intranasal PRN glimepiride 4 mg tablet 2 mg PO BID duloxetine 60 mg capsule,delayed release(DR/EC) 60 mg PO QAM Qty: 30 6RF simvastatin 5 MG tablet 5 mg PO HS sitagliptin phosphate 100 MG tablet 100 mg PO DAILY cetirizine 10 MG tablet 10 mg PO DAILY aspirin 81 MG tablet,delayed release (DR/EC) 325 mg PO DAILY Lactobacillus acidophilus 1 EACH capsule 1 each PO DAILY vitamin E (dl, acetate) 400 UNIT capsule 400 unit PO DAILY metformin 1,000 mg tablet 500 mg PO BID carvedilol 12.5 MG tablet 12.5 mg PO BID acetaminophen 650 MG tablet extended release 650 mg PO NEEDED PRN (Reason: PAIN) dicyclomine 20 MG tablet 20 mg PO TIDP PRN (Reason: Cramping) diazepam 5 MG tablet 5 mg PO TIDP PRN (Reason: Anxiety) qoeglsro-zsw-QK-lycopen-lutein 1 EACH tablet 1 each PO DAILY red yeast rice 600 MG capsule 600 mg PO BID omega-3 fatty acids-fish oil 1 EACH capsule 1 each PO BID furosemide 20 mg tablet 20 mg PO DAILYP Referrals Follow up/Referrals: Provider,Referral, MD [Primary Care Provider] - See instructions Activity Restrictions/Add. Instructions Additional Instructions/Restrictions: At this time is felt you are safe to be discharged home. If new or worsening symptoms please do not hesitate to return the emergency department. Please take antibiotics as prescribed in addition to your clindamycin. 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 Clinical Impressions Clinical Impression: Infection of great toe, Cellulitis Discharge ED Provider: Blair Jenkins General Adult HPI General Chief complaint: Extremity Injury, Lower Stated complaint: sore on left foot Time Seen by Provider: 03/23/23 15:07 Mode of Arrival: Wheelchair Source of Information: Patient Limitations: No Limitations Description of Symptoms (Recalled from ER Triage Doc. by RN): pt had a callous formed on left big toe from a shoe two weeks ago and recently it busted open and patient is concerned b/c its not healing well and is red swollen History of Present Illness HPI narrative: Patient is a 77-year-old female with history of onx-hcextmg-juyaawfrd diabetes who presents emergency department for evaluation of left diabetic foot wound. Patient states over the last 2 weeks she has had what initially was a callus over her distal left great toe, it subsequently became erythematous and has progressed over the past week, particularly over the past 48 hours. She has been prescribed clindamycin over the last 2 to 3 days for which she has been compliant. Patient denies pain, sensation changes from baseline, other symptoms at this time. No other acute complaints. Related Data Home Medications Medication Instructions Recorded Confirmed acetaminophen 650 mg 650 mg PO NEEDED PRN PAIN 04/26/18 01/14/23 tablet,extended release carvedilol 12.5 mg tablet 12.5 mg PO BID HTN 04/26/18 01/14/23 diazepam 5 mg tablet 5 mg PO TIDP PRN Anxiety 04/26/18 01/14/23 dicyclomine 20 mg tablet 20 mg PO TIDP PRN Cramping 04/26/18 01/14/23 czgvyter-sfz-hulcf acid 0.4 1 each PO DAILY Supplement 04/26/18 01/14/23 mg-lycopene 300 mcg-lutein 250 mcg tablet omega-3 fatty acids-fish oil 340 1 each PO BID Supplement 04/26/18 01/14/23 mg-1,000 mg capsule red yeast rice 600 mg capsule 600 mg PO BID Supplement 04/26/18 01/14/23 Lactobacillus acidophilus 10 1 each PO DAILY Supplement 01/30/20 01/14/23 billion cell capsule aspirin 81 mg tablet,delayed 325 mg PO DAILY SOL
[2023-03-23 16:05] LABS: Basophils # 0.1 K/mm3 (0-0.2); Basophils % 0.6 % (0.1-2.0); Eosinophils # 0.7 K/mm3 (0.0-0.4); Eosinophils % 7.3 % (0.1-12.0); Hematocrit 32.7 % (37.0-47.0); Hemoglobin 11.3 g/dL (12.2-16.2); Lymphocytes # 2.1 K/mm3 (0.7-4.5); Lymphocytes % 21.9 % (10-50); Mean Corpuscular HGB Conc 34.5 g/dL (31.8-35.4); Mean Corpuscular Hemoglobin 32.7 pg (27.0-31.2); Mean Corpuscular Volume 94.7 fl (81-99); Mean Platelet Volume 7.6 fl (7.4-10.4); Monocytes # 0.6 K/mm3 (0.1-1.0); Monocytes % 6.6 % (1.7-9.3); Neutrophils # 6.2 K/mm3 (1.8-7.8); Neutrophils % 63.6 % (37.0-80.0); Platelet Count 306 K/mm3 (142-424); Red Blood Count 3.45 M/mm3 (4.20-5.40); White Blood Count 9.7 K/mm3 (4.8-10.8)
[2023-03-23 16:11] LABS: Chloride 99 mmol/L (98-107); Potassium 4.5 mmoL/L (3.5-5.1); Sodium 138 mmol/L (136-145)
[2023-03-23 16:13] LABS: Alanine Aminotransferase 17 U/L (12-78); Aspartate Amino Transferase 24 U/L (14-36); Blood Urea Nitrogen 25 mg/dl (7-17); Creatinine Clearance Estimated 52 mL/min (50-200); Estimated Glomerular Filt Rate 48 ml/min (>60); GFR (African American) 58 ML/MIN (>60)
[2023-03-23 16:14] LABS: Albumin Level 4.1 g/dl (3.5-5.0); Albumin/Globulin Ratio 1.2 (1.1-1.8); Alkaline Phosphatase 77 U/L (38-126); Anion Gap 15.5 mEq/L (5-15); Bilirubin,Total 0.2 mg/dl (0.2-1.3); Calcium 9.1 mg/dl (8.4-10.2); Carbon Dioxide 28 mmol/L (22.0-30.0); Globulin 3.4 g/dL (1.3-3.2); Glucose 149 mg/dl (74-100); Total Protein,Serum 7.5 g/dl (6.3-8.2)
[2023-03-23 16:41] LABS: Erythrocyte Sedimentation Rate 105 mm/hr (0-30)
[2023-03-23 16:57] LABS: Hemoglobin A1C 6.8 % (4.0-6.0)
[2023-03-23 17:18] VITALS: BP 173/75; PULSE 73; RESP 18; O2SAT 98
[2023-03-23 18:18] VITALS: BP 166/72; PULSE 71; RESP 20; TEMP 37.1; O2SAT 97
== END 2023-03-23 18:19 | disposition home or self-care (01) ==
LOC: UTC 15:22 → ER 15:25
PROVIDERS: Emergency Provider Emergency Medicine
DX: E11.621 Type 2 diabetes mellitus with foot ulcer (principal); L03.032 Cellulitis of left toe; I11.0 Hypertensive heart disease with heart failure; I50.9 Heart failure, unspecified; K21.9 Gastro-esophageal reflux disease without esophagitis; E78.5 Hyperlipidemia, unspecified; Z79.84 Long term (current) use of oral hypoglycemic drugs; L97.529 Non-pressure chronic ulcer of other part of left foot with unspecified severity
CPT/HCPCS: 73620; 80053; 83036; 85025; 85651; 99283

== ENCOUNTER 2023-08-22 10:53 | Outpatient (CLI) | payer MEDICARE, SELFPAY ==
[2023-08-22 11:24] LABS: Basophils # 0.1 K/mm3 (0-0.2); Eosinophils % 13.5 % (0.1-12.0); Hematocrit 37.2 % (37.0-47.0); Hemoglobin 11.7 g/dL (12.2-16.2); Lymphocytes # 2.4 K/mm3 (0.7-4.5); Lymphocytes % 31.7 % (10-50); Mean Corpuscular HGB Conc 31.6 g/dL (31.8-35.4); Mean Corpuscular Hemoglobin 31.6 pg (27.0-31.2); Mean Corpuscular Volume 100.2 fl (81-99); Mean Platelet Volume 7.4 fl (7.4-10.4); Monocytes # 0.4 K/mm3 (0.1-1.0); Monocytes % 4.8 % (1.7-9.3); Neutrophils # 3.7 K/mm3 (1.8-7.8); Platelet Count 243 K/mm3 (142-424); Red Blood Count 3.71 M/mm3 (4.20-5.40); Red Cell Distribution Width 13.6 % (11.5-17.5); White Blood Count 7.5 K/mm3 (4.8-10.8)
[2023-08-22 12:07] LABS: Alanine Aminotransferase 16 U/L (12-78); Albumin Level 4.5 g/dl (3.5-5.0); Albumin/Globulin Ratio 1.7 (1.1-1.8); Alkaline Phosphatase 87 U/L (38-126); Anion Gap 14.1 mEq/L (5-15); Aspartate Amino Transferase 29 U/L (14-36); Bilirubin,Total 0.4 mg/dl (0.2-1.3); Blood Urea Nitrogen 48 mg/dl (7-17); Calcium 9.3 mg/dl (8.4-10.2); Carbon Dioxide 28 mmol/L (22.0-30.0); Chloride 104 mmol/L (98-107); Estimated Glomerular Filt Rate 43 ml/min (>60); GFR (African American) 52 ML/MIN (>60); Globulin 2.6 g/dL (1.3-3.2); Glucose 168 mg/dl (74-100); Potassium 5.1 mmoL/L (3.5-5.1); Sodium 141 mmol/L (136-145); Total Protein,Serum 7.1 g/dl (6.3-8.2)
[2023-08-22 12:45] LABS: Iron 58 ug/dL (37-170)
[2023-08-22 12:55] LABS: Total Iron Binding Capacity 288 ug/dL (265-497)
[2023-08-22 13:22] LABS: Ferritin 42.9 ng/ml (11.1-264)
[2023-08-23 10:10] LABS: Transferrin 217 mg/dL (192-364)
== END 2023-08-22 23:59 ==
LOC: LAB 10:55
PROVIDERS: PCP Internal Medicine Adolescent Medicine; Visit Provider Specialist
DX: D64.9 Anemia, unspecified; E11.40 Type 2 diabetes mellitus with diabetic neuropathy, unspecified; Z79.84 Long term (current) use of oral hypoglycemic drugs
CPT/HCPCS: 36415; 80053; 82728; 83540; 83550; 84466; 85025

== ENCOUNTER 2024-08-12 08:19 | Outpatient (CLI) | payer MEDICARE, SELFPAY ==
--- NOTE | 2024-08-12 08:24 | XR_ITS ---
FINAL REPORT CLINICAL HISTORY: chronic right shoulder pain COMPARISON: None right FINDINGS: Three views of the right shoulder were obtained. There is no evidence of acute displaced fracture or dislocation of the visualized bony architecture. There are severe degenerative changes of the glenohumeral joint. Joint bodies are seen in the inferior axillary recess, largest measuring up to 14 mm. Osteopenia is noted. The AC joint is intact. IMPRESSION: Severe degenerative changes with joint bodies. Reviewed, Interpreted and Dictated by Prakash Recio MD Transcribed by Ute Pierson Authenticated and [facility]
== END 2024-08-12 23:59 | disposition home or self-care (01) ==
LOC: RAD 08:20
PROVIDERS: PCP Internal Medicine Adolescent Medicine; Visit Provider Physician Assistant Surgical
DX: M25.511 Pain in right shoulder (principal)
CPT/HCPCS: 73030